=== PATIENT | female | born 1945 | race Caucasian/White ===

== ENCOUNTER 2020-05-31 07:30 | Observation (INO) ==
--- NOTE | 2020-05-31 08:26 | History & Physical Bridge Note ---
Date of Service May 31, 2020 History & Physical Bridge Note I have examined the patient, reviewed the History & Physical and in the interval since the performance of the History & Physical I have noted the following changes of clinical significance: no changes noted
[2020-05-31] MEDS ORDERED: LIDOCAINE HCL 1% 20 ML VIAL ONE (08:33)
[2020-05-31] MEDS ORDERED: BACITRACIN INJ 50,000 UNIT VIAL ONE (08:33)
[2020-05-31] MEDS ORDERED: BUPIVACAINE 0.25% 30 ML VIAL ONE (08:33)
--- NOTE | 2020-05-31 08:47 | Operative Report ---
Post Operative Report Pre & Post Diagnosis Syncope Operation Date: 05/31/20 09:00 <No data on this case meets the specified criteria> I identified the patient and participated in the time-out.: Yes Procedure Operation Date: 05/31/20 09:00 <No data on this case meets the specified criteria> LINQ insertion Surgeon Sujata Pacheco, DO Relish Maker none Estimated Blood Loss 1 Findings Consistent with Post-Op Diagnosis Specimens none Description of Procedure see official report I attest to the content of the Intraoperative Record and any orders documented therein. Any exceptions are noted below.
--- NOTE | 2020-05-31 08:51 | Pre Anesthesia Assessment ---
Date of Service May 31, 2020 Pre Sedation Assessment Cardiovascular + bradycardic Respiratory normal respiratory effort, lungs clear to auscultation Pre-Sedation Airway Assessment Smoking Status: Former smoker Hx Sleep Apnea: No Hx Difficult Intubation: No Short, Thick Neck: No Thyromental Distance: < 3.5 Finger Breadths Oral Cavity: + Dental Abnormalities Mallampati Class: II ASA: ASA3 Procedure Planning Contraindications for Sedation: none Current Medications Reviewed: Yes Notes The planned sedation has been discussed with the patient. Informed Consent was obtained. I have identified the patient, determined the appropriateness of sedation and have assessed the patient immediately prior to the procedure. All medicine(s) and interventions are by my order.
[2020-05-31] MEDS ORDERED: MIDAZOLAM HCL 5 MG/ML 1 ML VIAL ONE (09:10)
[2020-05-31] MEDS ORDERED: fentaNYL citrate 100 MCG/2 ML VIAL ONE (09:10)
[2020-05-31] MEDS ORDERED: CEFAZOLIN 250 MG/ML 1 GM VIAL ONE (09:10)
[2020-05-31] MEDS ORDERED: ACETAMINOPHEN 325 MG TAB PO PRN (10:47)
--- NOTE | 2020-05-31 10:47 | Operative Report ---
Post Operative Report Pre & Post Diagnosis chb Operation Date: 05/31/20 09:00 <No data on this case meets the specified criteria> I identified the patient and participated in the time-out.: Yes Procedure Operation Date: 05/31/20 09:00 left bundle ppm intracardiac mapping of EGM for HIS bundle <No data on this case meets the specified criteria> Surgeon Sujata Pacheco, DO Radiological Engineer none Estimated Blood Loss 1 Findings Consistent with Post-Op Diagnosis Specimens None Description of Procedure see official report I attest to the content of the Intraoperative Record and any orders documented therein. Any exceptions are noted below.
--- NOTE | 2020-05-31 10:47 | Post Anesthesia Assessment ---
Date of Service May 31, 2020 Post Sedation Assessment Vital Signs Temp Pulse Resp BP Pulse Ox 05/31/20 08:30 36.9 C 33 L 16 141/59 H 100 Recovery Score Activity: Moves 4 extremities Respiration: Deep Breath/Cough Circulation: +/-20% PreAnes Value Consciousness: Fully Awake Oxygen Saturation: > 92% On Room Air Discharge Sedation Level of Care: Fast Track Phase II Post Sedation Plan On clinical assessment, the patient appears to have tolerated the sedation without complications. Patient is recovering as anticipated. Patient will continue to be monitored by nursing and may be discharged when sedation discharge criteria are met per below protocol. Upon Completions of procedure up to 15 minutes continue every 5 minute vital signs and the P.A.R. score; then discharge to a Phase I or Fast Track to Phase I I per the following guidelines: * Discharge Patient to appropriate Phase II area if PAR is 8 or greater or return to pre- procedure baseline. The post - procedure orders will be as directed. * If PAR score is less than 8 or not return to pre-procedure baseline then patient will follow Phase I monitoring till PAR is reached for Phase II. The Phase I may be done in procedure room or may call to secure a Phase I area. * If naloxone or flumazenil are used for reversal, hold in Phase I for continued monitoring from when last reversal dose was given for a minimum of 60 minutes or longer pending the nurse and/or physician discretion of patient condition before discharge to Phase II. Please call the Sedation Physician to re-evaluate and complete post-note for discharge to Phase II area. Do NOT discharge from procedure sedation or Phase 1 until post- sedation evaluation note is complete by procedure /sedation MD Sedation Discharge Instructions to be given to the patient at discharge to home.
[2020-05-31] MEDS ORDERED: ALPRAZolam 0.5 MG TABLET PO PRN (10:52)
--- NOTE | 2020-05-31 10:55 | Discharge Summary ---
Date of Service June 01, 2020 Admission HPI Per Admitting Provider +fatigue and SOB due to CHB Admission Exam Per Admitting Provider aaox3, NAD NC/AT, EOMI Supple No JVD bradycardia S1/S2, No murmur CTA b/l no w/r/r soft nt/nd no LE edema b/l skin intact no focal deficits Principal Diagnosis chb s/p dual chamber ppm Discharge Exam aaox3, NAD NC/AT, EOMI Supple No JVD Nrl S1/S2, No murmur CTA b/l no w/r/r soft nt/nd no LE edema b/l skin intact no focal deficits left pectoral incision intact, no hematoma mild ecchymosis Discharge Data Allergies Allergy/AdvReac Type Severity Reaction Status Date / Time adhesive tape Allergy Mild Blister Verified 05/31/20 09:00 niacin Allergy Mild Rash Verified 05/31/20 09:01 Chrome Allergy Unknown Unknown Uncoded 05/31/20 09:00 nickel Allergy Unknown Unknown Uncoded 05/31/20 08:59 Procedures Performed Operation Date: 05/31/20 09:00 Actual Procedures p Pacer with A/V Leads (Dual) - Sujata Pacheco DO Ordered Studies CXR: No PTX leads in position 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 Underwent procedure without any complications; monitored overnight and discharged home. Total Time Total Time Spent Total Time Spent (In Minutes): 35 Total Time Includes: Examination of the Patient, Discharge Planning, Medication Reconciliation and Other Discharge Plan Discharge Items Patient Disposition: Home - Self-Care Reason For Visit: Symptomatic Sinus Bradycardia Discharge Diagnosis: chb s/p dual chamber ppm Condition on Discharge: Good Activity: As commented below Activity Comment: do not lift your left elbow over your left shoulder for 1 month Lifting: No more than 10 pounds Lifting Comment: do not lift more than 10 pounds with the left arm for 2 weeks Bathing: Keep incision dry Bathing Comment: keep dressing on and dry until wound check next week Sexual Activity: After two weeks Non-emergency contact: Technical Solution Architect Call non-emergency contact if: you have any medication questions Follow-up/Referrals: Humble Rizvi MD [Primary Care Provider] - Diet: Heart Healthy Addtl Attending Provider Instructions: device and wound check next week in [place] [facility] office try to wear the surgical bra or sports bra daily for the next 2 weeks to help the healing process Pending Studies at Discharge: No Stand-Alone Forms: My [facility] Medications and DC Order Prescriptions: Continued atorvastatin [Lipitor] 40 mg Tablet 40 mg PO DAILY RF: 0 folic acid 400 mcg Tablet 0.4 mg PO DAILY RF: 0 alprazolam [Xanax] 0.5 mg Tablet 0.5 mg PO TID PRN (Reason: Anxiety) RF: 0 cinnamon bark [Cinnamon] 500 mg Capsule 1,000 mg PO DAILY RF: 0 magnesium 500 mg Tablet 500 mg PO DAILY RF: 0 ascorbic acid (vitamin C) [Vitamin C] 500 mg Capsule, Extended Release 500 mg PO DAILY RF: 0 cranberry 500 mg Capsule 500 mg PO DAILY RF: 0 coenzyme Q10 [CoQ-10] 100 mg Capsule 200 mg PO DAILY RF: 0 alpha lipoic acid 200 mg Capsule 200 mg PO DAILY RF: 0 Discharge Orders: Discharge Order (Routine); Ordered 06/01/20 Ordered By: Sujata Pacheco Admission Data Admit Date/Time: 05/31/20 09:43 Attending Provider: Sujata Pacheco Admit Provider: Sujata Pacheco Primary Care Provider: Humble Rizvi I.
[2020-05-31] MEDS: OXYCODONE/ACETAMINOPHEN 5mg/325mg TAB PO PRN ×3 (14:42→23:05)
--- NOTE | 2020-05-31 17:31 | Electrocardiogram Report ---
Test Reason : Blood Pressure : / mmHG Vent. Rate : 062 BPM Atrial Rate : 062 BPM P-R Int : 166 ms QRS Dur : 144 ms QT Int : 506 ms P-R-T Axes : 070 -32 099 degrees QTc Int : 513 ms A-sensed V-paced rhythm Abnormal ECG No previous ECGs available Confirmed by Jeovanny Sargent ([id number]) on 05/31/2020 5:31:24 PM Referred By: Sujata Pacheco Confirmed By:Adalberto Sargent
--- NOTE | 2020-06-01 06:42 | XRay Report ---
XR chest 2V PA/lateral HISTORY: 74 years-old Female post left bundle ppm cardiac arrhythmia COMPARISON: None TECHNIQUE: PA and lateral views of the chest FINDINGS: Cardiac silhouette is upper limits of normal in size. Calcified plaque of the thoracic aortic arch. D ual lead left subclavian pacer. No pneumothorax, pleural effusion, airspace consolidation or overt pu lmonary edema. Bones appear grossly intact. Cholecystectomy. IMPRESSION: Left subclavian pacer. No postprocedural pneumothorax. ACT 112: Negative or not required by law. The above report was generated using voice recognition software. It may contain grammatical, syntax o r spelling errors. Electronically signed by: Jean Pierre Doyle M.D. 06/01/2020 6:41 AM
[2020-06-01] MEDS ORDERED: ASCORBIC ACID 500 MG TAB PO SCH (09:00)
[2020-06-01] MEDS ORDERED: NON-FORMULARY MEDICATION (Cranberry 500 MG) PO SCH (09:00)
[2020-06-01] MEDS ORDERED: ATORVASTATIN 40 MG TAB PO SCH (09:00)
[2020-06-01] MEDS ORDERED: MAGNESIUM OXIDE 400 MG TAB PO SCH (09:00)
[2020-06-01] MEDS ORDERED: NON-FORMULARY MEDICATION (Coenzyme Q10 [Coq-10] 200 MG) PO SCH (09:00)
[2020-06-01] MEDS ORDERED: FOLIC ACID 400 MCG TAB PO SCH (09:00)
[2020-06-01] MEDS ORDERED: NON-FORMULARY MEDICATION (Alpha Lipoic Acid 200 MG) PO SCH (09:00)
[2020-06-01] MEDS ORDERED: NON-FORMULARY MEDICATION (Cinnamon Bark [Cinnamon] 1,000 MG) PO SCH (09:00)
[2020-06-01] MEDS ORDERED: ONDANSETRON INJ 2 MG/ML 2 ML VIAL IV ONE (09:13)
[2020-06-01] MEDS ORDERED: ONDANSETRON 4 MG OD TAB PO STA (09:58)
--- NOTE | 2020-06-01 11:48 | Electrocardiogram Report ---
Test Reason : Blood Pressure : / mmHG Vent. Rate : 066 BPM Atrial Rate : 066 BPM P-R Int : 168 ms QRS Dur : 140 ms QT Int : 484 ms P-R-T Axes : 067 133 094 degrees QTc Int : 507 ms Atrial-sensed ventricular-paced rhythm with occasional atrial pacing Abnormal ECG Confirmed by Jeovanny Sargent ([id number]) on 06/01/2020 11:48:38 AM Referred By: Sujata Pacheco Confirmed By:Adalberto Sargent
--- NOTE | 2020-06-02 05:10 | Operative Report (OR) ---
DATE OF OPERATION: 05/31/2020 PREOPERATIVE DIAGNOSIS: Complete heart block. POSTOPERATIVE DIAGNOSIS: Complete heart block. PROCEDURE: Dual chamber (left bundle) rate responsive permanent pacemaker along with peripheral venogram and intracardiac electrogram mapping of the His bundle region, all under fluoroscopic guidance. SURGEON: Sujata Pacheco DO. ASSISTANTS: None. ANESTHESIA: Monitored conscious sedation administered under my supervision by Elizabet Kohler. Start time 9:25, end time 10:42, total of 4 mg Versed, 100 mcg of fentanyl. INTRAVENOUS FLUIDS: 42 mL. ANTIBIOTICS: Two grams of Ancef. BLOOD LOSS: 20 mL. CONTRAST 25 mL. URINE OUTPUT: Not applicable. SPECIMENS: None. FINDINGS: See below. DRAINS: None. INDICATIONS: This is a 74-year-old female who has a past medical history of hyperlipidemia, obstructive sleep apnea, and prediabetes. She was having some dizziness, noted some bradycardia, came into our office and was found to be in complete heart block, so she was recommended a pacemaker. CONSENT: Consent was obtained prior to the patient going into electrophysiology lab. The patient was informed of the risks, benefits and alternatives to the procedure. Risks include but not limited to sudden cardiac , cardiac arrhythmia, cerebrovascular accident, myocardial infarction, injury to the blood vessels, chamber of the heart, lung, bleeding, and infection. The patient understood these risks and agreed with procedure as planned. Informed consent was obtained. DESCRIPTION OF THE PROCEDURE: The patient was brought into the electrophysiology lab in fasting state. She was connected to continuous director of cardiac cath lab. Timeout was performed to ensure patient's identity and procedure correctly. She received prophylactic antibiotics prior to incision. Copen precautions obtained throughout the procedure. Monitored conscious sedation was given throughout the procedure for patient's comfort level. 10 mL of 1% lidocaine, bupivacaine mixture were given in the left deltopectoral groove. Incision was made in left deltopectoral groove. Blunt dissection was performed down to the subcutaneous tissue. Then a peripheral venogram was performed to identify the axillary vein. Venous axillary access was obtained through a needlestick without any problems. Guidewire was inserted and then an 8-[place] SafeSheath was advanced over the guidewire. The dilator was removed and a second guidewire was inserted through the sheath to allow for retained venous access. Sheath was removed, flushed, reinserted reinserted with the dilator and then reinserted over the guidewire. The guidewire and dilator were removed. Then initially I put the right atrial lead down into the right ventricular apex to have backup pacing in case I needed it. Then I placed an 8-[place] SafeSheath over the retained guidewire. The guidewire and dilator removed and then the His sheath was advanced over a Glidewire into the right ventricle. The Glidewire and dilator were removed. Then, the pacing lead was advanced through the sheath and I did intracardiac electrogram mapping of the His bundle, I found the AH 80 milliseconds, HV was 60 milliseconds. I then marked where this area was on my monitor when my camera was in MAK 30. Then I saul an imaginary line down to the apex and about 10 cm from the His bundle region. I marked another area on my monitor screen to have an idea of where I wanted my left bundle lead to go, I then positioned the left bundle lead into this general area and onto the septum and I started clockwise turning the lead a few times to start screwing it into the septum and watching monitored QRS morphology changing my V1 as well as my pacing stim to the QRS peak in V6 as well as my impedance drops. At one point, I did get a high impedance drop. I then gave a puff of contrast through the sheath and I noticed that although I still had injury on my lead and I still had capture and good and stable impedance, when I gave contrast through the sheath, it looks like there was a microperforation because some of the contrast into the LV. I therefore retracted back the lead, pulled the lead out and flushed it and then started all over again repositioning the pacing lead in that septum area a little below the His and little different from where it was before and then gave a series of clockwise turns to start screwing the lead in and monitoring my QRS morphology changes in V1 as well as my pacing stim to QRS timing in V5, and V6, and my impedance drops. The lead could easily went into the septum. Only gave a few turns and then I gave a puff of contrast to see that I had majority of the lead in and it was up against the septum. I then slit the His sheath under fluoroscopic guidance. I then went back to the backup right atrial lead that I had been placed in the right ventricle apex. I retracted the screw and then positioned this lead into the right atrial apex. There was adequate pacing and sensing thresholds and no diaphragmatic stimulation with high output pacing. The sheath was then slit under fluoroscopic guidance and the lead was fixated to pectoralis muscle using 0 silk suture. I then slit the outer 8-[place] sheath that was around the left bundle lead and then fixated that lead to the pectoralis muscle, a pursestring using 2-[address] needle was placed around the venous puncture site. I then created a pacer pocket using blunt dissection over the pectoralis muscle, then flushed the pocket with copious amounts of bacitracin saline wash. The leads were then attached to the pulse generator making sure the pins were in appropriate position, passed set screw and set screws were tightened. The pulse generator was then placed in a Tyrx pouch and then placed in the pocket, making sure that the leads were lying flat beneath the device. The incision was then closed in 3-layer fashion with 2-0 Vicryl interrupted suture followed by 3-0 Vicryl interrupted suture, followed by 4-0 Monocryl running stitch. Dermabond was applied followed by a Telfa and micropore dressing. EQUIPMENT: 1. The pulse generator is a Medtronic [place] XT DR AKIKO Darby [id number], serial #[id number]. 1. The Tyrx pouch is reference [id number], lot #[id number], expiration 03/09/2021. 2. Right atrial lead Medtronic 5076-52 cm, serial #[id number]. 3. Left bundle lead Medtronic 3830-69 cm, serial number [id number]. INTRAOPERATIVE FINDIN. Right atrial lead: P waves 2.6 millivolts, impedance 592 ohms, threshold 0.7 volts at 0.5 milliseconds. 2. Left bundle lead: R waves 9.1 millivolts, impedance 757 ohms, threshold 0.3 volts at 0.5 milliseconds. 3. AH was 80 milliseconds, HV was 60 milliseconds. FINAL MEASUREMENTS THROUGH THE DEVICE: 1. Right atrial lead: P waves 1.8 millivolts, impedance 494 ohms, threshold 0.25 volts at 0.5 milliseconds. 2. Left bundle lead: R waves 10.6 millivolts, impedance 703 ohms, threshold 0.5 volts at 0.4 milliseconds. FINAL PARAMETERS: DDDR 60/130, right atrial amplitude 3.5 volts, pulse width 0.4 milliseconds, sensitivity 0.3 millivolts. Left bundle lead amplitude 3.5 volts, pulse width 0.4 milliseconds, sensitivity 1.2 millivolts. IMPRESSION: Successful implantation of a dual chamber (left bundle) rate responsive permanent pacemaker under fluoroscopic guidance along with peripheral venogram and intracardiac electrogram mapping of the His bundle region secondary to complete heart block. PLAN: Monitor the patient overnight, 12-lead ECG, chest x-ray. She cannot lift the left elbow and left shoulder for 1 month. She cannot lift more than 10 pounds with the left arm for 2 weeks. She is to shower. She is to keep the dressing on and dry until her wound check next week and she will follow up with general cardiology as scheduled. I attest to the content of the Intraoperative Record and any orders documented therein. Any exceptions are noted below. JEAN PAUL
== END 2020-06-01 11:00 | disposition home or self-care (01) ==
LOC: EP 07:30 → 1E 07:30 → 2S 18:55

== ENCOUNTER 2024-10-02 05:45 | Inpatient (IN) ==
--- NOTE | 2024-09-04 08:24 | PAT Medication Instructions ---
Medication Instructions Date of Service September 04, 2024 Home Medications alpha lipoic acid 200 mg capsule 200 mg PO QAM alprazolam 0.5 mg tablet (Xanax) 0.25 mg PO HS PRN Sleep ascorbic acid (vitamin C) 500 mg capsule,extended release (Vitamin C) 500 mg PO QAM coenzyme Q10 100 mg capsule (CoQ-10) 100 mg PO QAM cranberry 500 mg capsule 500 mg PO QAM folic acid 400 mcg tablet 0.8 mg PO QAM Prevagen 1 dose PO QAM ascorbic acid 7.5 mg-vit E 7.5 unit-biotin 1,250 mcg chewable tablet (Hair,Skin,Nails with Biotin) 1 tab PO QAM cholecalciferol (vitamin D3) 50 mcg (2,000 unit) capsule (Vitamin D3) 100 mcg PO QAM flaxseed oil 1,000 mg capsule 1,000 mg PO QAM herbal complex no.[id number] 450 mg capsule (Echinacea and Goldenseal) 900 mg PO QAM magnesium glycinate 118 mg PO QPM red yeast rice 600 mg tablet 1,200 mg PO QAM selenium 200 mcg tablet 200 mcg PO QAM turmeric 400 mg capsule 400 mg PO UD vitamin E (dl, acetate) 400 unit chewable tablet 400 unit PO QAM zinc 50 mg tablet 50 mg PO QAM STOP taking 2 weeks before surgery (or as soon as possible if surgery is within 2 weeks) alpha lipoic acid 200 mg capsule 200 mg PO QAM coenzyme Q10 100 mg capsule (CoQ-10) 100 mg PO QAM Prevagen 1 dose PO QAM ascorbic acid 7.5 mg-vit E 7.5 unit-biotin 1,250 mcg chewable tablet (Hair,Skin,Nails with Biotin) 1 tab PO QAM flaxseed oil 1,000 mg capsule 1,000 mg PO QAM herbal complex no.174 450 mg capsule (Echinacea and Goldenseal) 900 mg PO QAM red yeast rice 600 mg tablet 1,200 mg PO QAM selenium 200 mcg tablet 200 mcg PO QAM turmeric 400 mg capsule 400 mg PO UD vitamin E (dl, acetate) 400 unit chewable tablet 400 unit PO QAM DO NOT take the morning of surgery ascorbic acid (vitamin C) 500 mg capsule,extended release (Vitamin C) 500 mg PO QAM folic acid 400 mcg tablet 0.8 mg PO QAM cholecalciferol (vitamin D3) 50 mcg (2,000 unit) capsule (Vitamin D3) 100 mcg PO QAM zinc 50 mg tablet 50 mg PO QAM cranberry 500 mg capsule 500 mg PO QAM Take evening before surgery alprazolam 0.5 mg tablet (Xanax) 0.25 mg PO HS PRN Sleep (if needed) magnesium glycinate 118 mg PO QPM MORNING OF SURGERY: NOTHING TO EAT OR DRINK AFTER MIDNIGHT Other Notes If you have any questions please call us at [phone] or [phone] or [phone] or [phone]
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
--- OUTSIDE RECORDS SUMMARY | 2024-10-02 05:51 | External Medical Summary | Summary of Care ---
Author Name Unknown Organization [facility] Address [address] [facility] [address] Phone [phone] Care Team Providers Care Photovoltaic Subcontractor Name Role Phone Nataly Jama PA-C Primary Care Provider Encounter Details Date Type Department Care Team (Late st Contact Info) Description 10/01/2024 Result Scan Unspecified Department Sujata Pacheco, DO [address] [facility] [place] [id number] <No scans attached> Allergies Active Allergy Reactions Criticality Noted Date Comments Adhesive Tape Rash High 04/24/2017 Chrome Alum Rash 10/30/2018 Latex Rash 07/08/2020 Niacin Rash High 03/03/2024 Nickel 08/28/2017 And chrome, can't wear jewelery or makeup with these in them. Oxycodone 10/07/2023 vomiting documented as of this encounter (statuses as of 10/02/2024) Medications Vitamin C 500 MG Oral Tablet Take 1 Tablet by mouth in the morning. Active CoQ-10 100 MG Oral Capsule Take 200 mg by mouth daily. Active Cranberry 500 MG Oral Capsule Take 1 Capsule by mouth in the morning. One capsule by mouth daily. Active Alpha-Lipoic Acid 200 MG Oral Capsule Take 1 Cap by mouth daily. Active Folic Acid 400 MCG Oral Tablet Take 1 Tablet by mouth in the morning. Active Aspirin 81 MG Oral Tablet Chewable Take 1 Tablet by mouth in the morning. Active Vitamin E 100 UNIT Oral Capsule Take 1 Capsule by mouth in the morning. Active D3-1000 25 MCG (1000 UT) Oral Tablet (Cholecalcifero l) Take 2 Tablets by mouth in the morning. Active Selenium 100 MCG Oral Capsule Take 1 Capsule by mouth in the morning. Active ALPRAZolam 0.5 MG Oral Tablet (xaNAX)Indicati ons:ALAN (generalized anxiety disorder) One tablet by mouth as often as three times a day, as needed for anxiety. 30 Tablet 1 3 Active Red Yeast Rice 600 MG Oral Capsule Take 2 Capsules by mouth in the morning. Active [facility] Flaxseed Oil 1000 MG Oral Capsule Take 1 Capsule by mouth every morning. Active Ibuprofen 800 MG Oral Tablet (Motrin) Take 1 Tablet by mouth in the morning and 1 Tablet at noon and 1 Tablet before bedtime. with food for pain. 30 Tablet 1 4 Active Estradiol 0.1 MG/GM Vaginal Cream (Estrace) Apply pea sized (0.5 gm) vaginally twice a week at bedtime. 42.5 g 3 4 Active Zinc 100 MG Oral Tablet Take 1 Tablet by mouth in the morning. Active Magnesium 400 MG Oral Tablet Take 1 Tablet by mouth every evening. OTC Active documented as of this encounter (statuses as of 10/02/2024) Active Problems Problem Noted Date Diagnosed Date Mixed dyslipidemia 03/07/2021 CHB (complete heart block) 05/31/2020 ALAN (generalized anxiety disorder) 11/16/2019 Chronic constipation 11/07/2018 Prediabetes 06/02/2018 Overview: Per Prediabetes protocol #1 SANDY (obstructive sleep apnea) 03/05/2018 Overview (12/18/2019): On CPAP INFORMATION 09/25/2017 Overview (09/25/2017): Received records from [facility]. Chest x-ray in January of 2017 was unremarkable. Past surgical history includes appendectomy, cholecystectomy, hysterectomy and bladder prolapse surgery. CBC, lipid, metabolic panel are unremarkable documented as of this encounter (statuses as of 10/02/2024) Resolved Problems Problem Noted Date Diagnosed Date Resolved Date Current mild episode of omari r depressive disorder without prior episode 09/06/2020 1 Encounter for examination fo r normal comparison and control in clinical research program 06/04/2018 03/28/2020 Overview (12/12/2020): DO NOT DELETE [facility] XOCHITL Study: Project # [id number], Manager Applied: Ty Guzman, PhD. SUMMARY: Goal: Establish test characteristics (sensitivity, specificity, PPV, NPV) of a circulating tumor DNA (ctDNA)-based test for cancer. Hypothesis: Circulating tumor DNA (ctDNA) and elevated protein biomarkers (together, the marker panel) can be detected in asymptomatic individuals with early cancer. Specific Aim 1: Determine the prevalence of a positive marker panel test in a prospective clinical cohort of 10,000 asymptomatic women ages 65 to 75 years. Specific Aim 2: Determine the sensitivity, specificity, positive predictive value (PPV) and negative predictive value (NPV) of a marker panel test to identify histologically proven cancers that develop within 5-years of the marker panel evaluation. CONTACTS: During normal business hours, contact study staff at ; after hours Manager Applied via the [facility] hospital operator weapon locating radar . Please contact study team before resolving/deleting from patients problem list. Study phone number: [phone]. Diagnosis changed due to Research Module. Go to Snapshot for study details. Encounter for examination fo r normal comparison and control in clinical research program 06/04/2018 04/26/2022 Overview (12/12/2020): DO NOT DELETE - [facility] DETECT Study: Project # [id number], Manager Applied: Reno Fonseca, MS, MPH. SUMMARY: Goal: Establish test characteristics (sensitivity, specificity, PPV, NPV) of a circulating tumor DNA (ctDNA)-based test for cancer. - Hypothesis: Circulating tumor DNA (ctDNA) and elevated protein biomarkers (together, the marker panel) can be detected in asymptomatic individuals with early cancer. - Specific Aim 1: Determine the prevalence of a positive marker panel test in a prospective clinical cohort of 10,000 asymptomatic women ages 65 to 75 years. - Specific Aim 2: Determine the sensitivity, specificity, positive predictive value (PPV) and negative predictive value (NPV) of a marker panel test to identify histologically proven cancers that develop within 5-years of the marker panel evaluation. - CONTACTS: During normal business hours, contact study staff at ; after hours Manager Applied via the [facility] hospital operator weapon locating radar . - Please contact study team before resolving/deleting from patients problem list. Study phone number: [phone]. Diagnosis changed due to Research Module. Go to Snapshot for study details. documented as of this encounter (statuses as of 10/02/2024) Immunizations Name Administration Dates Next Due Pneumococcal Polysaccharide PPV23 (Pneumovax) Season Influenza, Quad, PF, Adjuvanted, 65+ Yrs, IM (FLUAD) 07/08/2020 Seasonal Influenza, Quadrivalent, No Preserve, I M 06/02/2018 TDAP (age 10 and older)(Boostrix) 01/24/2017 Varicella Zoster Vaccine (Adult) 12/25/2015,07/0 01/2015 documented as of this encounter Social History Tobacco Use Types Packs/Day Years Used Date Smoking Tobacco: Never Smokeless Tobacco: Never Alcohol Use Standard Drinks/Week Comments No 0 (1 standard drink = 0.6 oz pur e alcohol) occasionally PHQ-2 Answer Date Recorded PHQ Adult Total Score 0 12/19/2023 Hunger Vital Sign Answer Date Recorded Within the past 12 months, y ou worried that your food would run out before you got the money to buy more. Never true 10/07/19 24 Within the past 12 months, t he food you bought just didn't last and you didn't have money to get more. Never true 10/07/2023 Childcare Answer Date Recorded Do you feel overwhelmed with taking care of a child, family member or friend? No 10/07/2023 Does your family need help f inding childcare? (Household - for ages 0-17 years) Not on file 10/07/2023 Clothing Answer Date Recorded Have you been unable to get clothing when it was really needed? No 10/07/2023 Is your family able to get c lothes or diapers when needed? (Household - for ages 0-17 years) Not on file 10/07/2023 Personal Safety Answer Date Recorded Do you feel unsafe or have concerns for your saf ety? No 10/07/2023 Do you have concerns for you r family's safety? (Household - for ages 0-17 years) Not on file 10/07/2023 Utilities Answer Date Recorded Do you have trouble paying y our heating, water, or electric bill? No 10/07/2023 Is your family able to pay t he heat, water, or electric bill? (Household - for ages 0-17 years) Not on file 10/07/2023 Does your family have access to good internet? (Household - for ages 0-17 years) Not on file 10/07/2023 Employment Status Answer Date Recorded Are you unemployed or without regular income? No 10/07/2023 Does the household have a re gular source of income? (Household - for ages 0-17 years) Not on file 10/07/2023 Social Connections Answer Date Recorded How often do you feel lonely or isolated from th ose around you? Never 10/07/2023 Financial Resource Strain Answer Date R ecorded Do you have any trouble payi ng for your medications, or do you think you might in the future? No 10/07/2023 Does your family have troubl e paying for medicine? (Household - for ages 0-17 years) Not on file 10/07/2023 Transportation Needs Answer Date Record ed READ ONLY Do you have troubl e getting a ride to medical visits or work? Never True 10/07/2023 Does your family have a hard time getting a ride to doctors visits? (Household - for ages 0-17 years) Not on file 10/07/2023 Has lack of transportation k ept you from medical appointments, meetings, work, or from getting things needed for daily living? Check all that apply. (Adult - for ages 18 years and over) Not on file 10/07/2023 Do you (or your family) have trouble finding or paying for a ride (transportation)? (Household - for ages 0-17 years) Not on file 10/07/2023 Housing Stability Answer Date Recorded Do you currently live in a s helter or have no steady place to sleep at night? No 10/07/2023 READ ONLY Do you think you a re at risk of becoming homeless? No 10/07/2023 Does your family worry about paying for your home or becoming homeless? (Household - for ages 0-17 years) Not on file 0 10/07/2023 Are you homeless or worried that you might be in the future? (Adult - for ages 18 years and over) Not on file Are you (or your family) shilo eless or worried that you might be in the future? (Household - for ages 0-17 years) Not on file Food Insecurity Answer Date Recorded Do you need food for this week? No 10/07/2023 Are you able to get enough f ood for your family? (Household - for ages 0-17 years) Not on file 10/07/2023 Does your family need food t his week? (Household - for ages 0-17 years) Not on file 10/07/2023 Do you always have enough fo od for your family? (Household - for ages 0-17 years) Not on file 10/07/2023 Comments No Sex and Gender Information Value Date Recorded Sex Assigned at Not on file Legal Sex Female 4:18 PM EDT Gender Identity Not on file Sexual Orientation Not on file documented as of this encounter Plan of Treatment Upcoming Encounters Date Type Department Care Team (Late st Contact Info) Description 12/31/2024 10:00 AM EDT Nurse Only Ancillary, [place] [address] [place] [address] [place], Nurse Annual Wellness [facility] [address] [place] [address] 02/02/2025 1:30 PM EDT Office Visit [facility] O[facility]mane Ontiveros [address] [place] [address] Handy Bravo MD [address] [place] [address] 09/09/2025 10:00 AM EST Office Visit [facility] [address] [place] [address] Carmelina Gonzalez CRNP [address] [place] [address] Health Maintenance Due Date Last Done Comments Zoster Vaccines (2 of 3) 02/19/2016 12/25/2015, /01/2015 Pneumococcal Vaccine: 50+ Years (2 of 2 - PCV) 01/24/2018 01/24/2017 COVID-19 Vaccine (1 - season) 2024 Influenza Vaccine (FLU shot) (#1) 2024 07/08/2020, 06/02/2018 Adult Wellness Visit 12/18/2024 12/19/2023, 04/02/2022, 04/03/2021 Depression Screening 12/18/2024 12/19/2023 HbA1c 12/19/2024 12/20/2023, 02/0 04/2022, 10/03/2020, Additional history exists DXA Scan 08/18/2026 08/18/2024, 06/19/2018 DTap/Tdap Vaccines (2 - Td or Tdap) 01/24/2027 01/24/2017 HPV (Gardasil) Vaccine Aged Out No lo nger eligible based on patient's age to complete this topic Hepatitis B Vaccine Aged Out No longe r eligible based on patient's age to complete this topic MENINGOCOCCAL (MENACTRA/MENVEO) Aged Out No longer eligible based on patient's age to complete this topic documented as of this encounter Medical Devices Implanted Type Area Hop Worker Device Identifier Shelf Expiration Date Model / Serial / Lot Pacemaker-05/31/2020 Implanted:01/2020 (Quantity not on file) Pacemaker MED[employer] : CARDIAC SURGERY [id number] EMETERIO / / Description:[id number] Lens Intraoc 20.0 - [id number] - [id number] Implanted:Qty : 1 on 11/11/2018 by Russell Lima MD at [facility] Right: Eye [employer] 03/25/2023 [id number] / [id number] / [id number] Lens Intraoc 20.0 - [id number] - [id number] Implanted:Qty : 1 on 11/20/2018 by Russell Lima MD at [facility] Left: Eye [employer]OM[employer] 06/25/2023 [id number] / [id number] / [id number] documented as of this encounter Procedures Procedure Name Priority Date/Time Associated Diagnosis Comments CARDIOLOGY SCANNED RESULT 10/01/2024 documented in this encounter Results * CARDIOLOGY SCANNED RESULT (10/01/2024) 10/01/2024 us Sujata Pacheco DO OTHER Final R esult documented in this encounter Care Teams Photovoltaic Subcontractor Relationship Specialty Start Date End Date Nataly Jama PA-C [address] [place] [address] PCP - General Physician Black Top Spreader Machine Operator 03/04/24 documented as of this encounter
--- OUTSIDE RECORDS SUMMARY | 2024-10-02 05:51 | External Medical Summary | Summary of Care ---
Author Name Unknown Organization [facility] Address [address] [facility] [place] [address] Phone [phone] Care Team Providers Care Washery Boss Name Role Phone Nataly Jama PA-C Primary Care Provider Encounter Details Date Type Department Care Team (Late st Contact Info) Description 09/09/2024 Orders Only PATIENT PORTAL DO NOT DELETE THIS DEPT USED BY [place] [id number] Allergies Active Allergy Reactions Criticality Noted Date Comments Adhesive Tape Rash High 04/24/2017 Chrome Alum Rash 10/30/2018 Latex Rash 07/08/2020 Niacin Rash High 03/03/2024 Nickel 08/28/2017 And chrome, can't wear jewelery or makeup with these in them. Oxycodone 10/07/2023 vomiting documented as of this encounter (statuses as of 09/09/2024) Medications Vitamin C 500 MG Oral Tablet [...] Capsule by mouth in the morning. Active Warriormine-3 1000 MG Oral Capsule Take 1 Capsule [...] as of this encounter (statuses as of 09/09/2024) Active Problems Problem Noted Date Diagnosed Date Mixed dyslipidemia 03/07/2021 CHB (complete heart block) 05/31/2020 ALAN (generalized anxiety disorder) 11/16/2019 Chronic constipation 11/07/2018 Prediabetes 06/02/2018 Overview: Per Prediabetes protocol #1 SANDY (obstructive sleep apnea) 03/05/2018 Overview (12/18/2019): On CPAP INFORMATION 09/25/2017 Overview (09/25/2017): Received records from [facility]. Chest x-ray in January of 2017 was unremarkable. Past surgical history includes appendectomy, cholecystectomy, hysterectomy and bladder prolapse surgery. CBC, lipid, metabolic panel are unremarkable documented as of this encounter (statuses as of 09/09/2024) Resolved Problems Problem Noted Date Diagnosed Date Resolved Date Current mild episode of omari r depressive disorder without prior episode 09/06/2020 1 Encounter for examination fo r normal comparison and control in clinical research program 06/04/2018 03/28/2020 Overview (12/12/2020): DO NOT DELETE [facility] DETECT Study: Project # [id number], Band Tier: Ty Guzman, PhD. SUMMARY: Goal: Establish test [...] contact study staff at ; after hours Band Tier via the [facility] hospital screen printing machine operator helper . Please contact study team before resolving/deleting from patients problem list. Study phone number: [phone]. Diagnosis changed due to Research Module. Go to Snapshot for study details. Encounter for examination fo r normal comparison and control in clinical research program 06/04/2018 04/26/2022 Overview (12/12/2020): DO NOT DELETE - [facility] DETECT Study: Project # [id number], Band Tier: Reno Fonseca, MS, MPH. SUMMARY: Goal: Establish [...] contact study staff at ; after hours Band Tier via the [facility] hospital screen printing machine operator helper . - Please contact study team before resolving/deleting from patients problem list. Study phone number: [phone]. Diagnosis changed due to Research Module. Go to Snapshot for study details. documented as of this encounter (statuses as of 09/09/2024) Immunizations Name Administration Dates Next Due Pneumococcal [...] 18 years and over) Not on file 4 Are you (or your family) shilo eless [...] Care Team (Late st Contact Info) Description 09/22/2024 10:00 AM EST Office Visit Family Practice, [place] [address] [place] [phone] Je Bennett CRNP [address] [place] [id number] 12/31/2024 10:00 AM EDT Nurse Only Ancillary, [place] [address] [place] [address] [place], Nurse Annual Wellness [facility] [place] [address] 02/02/2025 1:30 PM EDT Office Visit COMMUNITY LEADER Urology Ousmane Ontiveros [facility] [place] [phone] Handy Bravo MD [address] [place] [address] 09/09/2025 10:00 AM EST Office Visit CardiologyOusmane [facility] [place] [address] Carmelina Gonzalez CRNP [address] [place] [phone] Health Maintenance Due Date Last Done Comments Zoster Vaccines (2 of 3) 02/19/2016 12/25/2015, 01/2015 Pneumococcal Vaccine: 50+ Years (2 of 2 - PCV) 01/24/2018 01/24/2017 COVID-19 Vaccine (1 - season) 2024 Influenza Vaccine (FLU shot) (#1) 2024 07/08/2020, 06/02/2018 Adult Wellness Visit 12/18/2024 12/19/2023, 04/02/2022, 04/03/2021 Depression Screening 12/18/2024 12/19/2023 HbA1c 12/19/2024 12/20/2023, 04/2022, 10/03/2020, Additional history exists DXA Scan [...] this encounter Medical Devices Implanted Type Area Neuro Ophthalmologist Device Identifier Shelf Expiration Date Model / Serial / Lot Pacemaker-05/31/2020 Implanted:01/2020 (Quantity not on file) Pacemaker MEDTRONIC : CARDIAC SURGERY [id number] EEMTERIO / / Description:[id number] Lens Intraoc 20.0 - [id number] - [id number] Implanted:Qty : 1 on 11/11/2018 by Russell Lima MD at OR [facility] Right: Eye BAUSCH & LOMB 03/25/2023 [id number] / [id number] / [id number] Lens Intraoc 20.0 - [id number] - [id number] Implanted:Qty : 1 on 11/20/2018 by Russell Lima MD at OR [facility] Left: Eye BAUSCH & LOMB 06/25/2023 [id number] / [id number] / [id number] documented as of this encounter Care Teams Washery Boss Relationship Specialty Start Date End Date Nataly Jama PA-C [address] [place] [phone] PCP - General Physician Research Assistant 03/04/24 documented as of this encounter
--- OUTSIDE RECORDS SUMMARY | 2024-10-02 05:52 | External Medical Summary | Summary of Care ---
Author Name Unknown Organization [facility] Address [address] [facility] [place] [address] Phone [phone] Care Team Providers Care Online Marketing Analyst Name Role Phone Nataly Jama PA-C Primary Care Provider Reason for Visit * Reason Comments Pre-op Clearance Encounter Details Date Type Department Care Team (Late st Contact Info) Description 09/07/2024 10:00 AM EST Office Visit CardiologyOusmane [address] [facility] [place], [place] [phone] Carmelina Gonzalez CRNP 400 [facility] [place] [phone] CHB (complete heart block) (HCC)*; Pre-operative cardiovascular examination; Cardiac pacemaker in situ; Mixed dyslipidemia Allergies Active Allergy Reactions Criticality Noted Date Comments Adhesive Tape Rash High 04/24/2017 Chrome Alum Rash 10/30/2018 Latex Rash 07/08/2020 Niacin Rash High 03/03/2024 Nickel 08/28/2017 And chrome, can't wear jewelery or makeup with these in them. Oxycodone 10/07/2023 vomiting documented as of this encounter (statuses as of 09/07/2024) Medications Vitamin C 500 MG Oral Tablet [...] Capsule by mouth in the morning. Active Dallas-3 1000 MG Oral Capsule Take 1 Capsule [...] Tablet by mouth every evening. OTC Active Lubiprostone 24 MCG Oral Capsule (Amitiza) TAKE 1 CAPSULE BY MOUTH TWICE DAILY WITH MORNING MEAL AND WITH EVENING MEAL WITH FOOD 60 Capsule 5 4 09/07/19 25 Discontinu ed(Patient preference /discontin uation) documented as of this encounter (statuses as of 09/07/2024) Active Problems Problem Noted Date Diagnosed Date Mixed dyslipidemia 03/07/2021 CHB (complete heart block) 05/31/2020 ALAN (generalized anxiety disorder) 11/16/2019 Chronic constipation 11/07/2018 Prediabetes 06/02/2018 Overview: Per Prediabetes protocol #1 SANDY (obstructive sleep apnea) 03/05/2018 Overview (12/18/2019): On CPAP INFORMATION 09/25/2017 Overview (09/25/2017): Received records from [facility]. Chest x-ray in January of 2017 was unremarkable. Past surgical history includes appendectomy, cholecystectomy, hysterectomy and bladder prolapse surgery. CBC, lipid, metabolic panel are unremarkable documented as of this encounter (statuses as of 09/07/2024) Resolved Problems Problem Noted Date Diagnosed Date Resolved Date Current mild episode of omari r depressive disorder without prior episode 09/06/2020 Encounter for examination fo r normal comparison and control in clinical research program 06/04/2018 03/28/2020 Overview (12/12/2020): DO NOT DELETE [facility] DETECT Study: Project # [id number], Cold Food Packer: Ty Guzman, PhD. SUMMARY: Goal: Establish test [...] contact study staff at ; after hours Cold Food Packer via the [facility] hospital whiteprinting machine operator . Please contact study team before resolving/deleting from patients problem list. Study phone number: [phone]. Diagnosis changed due to Research Module. Go to Snapshot for study details. Encounter for examination fo r normal comparison and control in clinical research program 06/04/2018 04/26/2022 Overview (12/12/2020): DO NOT DELETE - [facility] DETECT Study: Project # [id number], Cold Food Packer: Reno Fonseca, MS, MPH. SUMMARY: Goal: Establish [...] contact study staff at ; after hours Cold Food Packer via the [facility] hospital whiteprinting machine operator . - Please contact study team before resolving/deleting from patients problem list. Study phone number: [phone]. Diagnosis changed due to Research Module. Go to Snapshot for study details. documented as of this encounter (statuses as of 09/07/2024) Immunizations Name Administration Dates Next Due Pneumococcal Polysaccharide PPV23 (Pneumovax) Season Influenza, Quad, PF, Adjuvanted, 65+ Yrs, IM (FLUAD) 07/08/2020 Seasonal Influenza, Quadrivalent, No Preserve, I M 06/02/2018 TDAP (age 10 and older)(Boostrix) 01/24/2017 Varicella Zoster Vaccine (Adult) 12/25/2015,07/0 01/2015 documented as of this encounter Social History Tobacco Use Types Packs/Day Years Used Date Smoking Tobacco: Never Smokeless Tobacco: Never Tobacco Cessation:Counseling Given: Not Answered Alcohol Use Standard Drinks/Week Comments No 0 [...] 10/07/2023 Does the household have a re lar source of income? (Household - for ages [...] on file documented as of this encounter Last Filed Vital Signs Vital Sign Reading Time Taken Comments Blood Pressure 141/73 09/07/2024 9:55 AM EST Pulse 80 09/07/2024 9:55 AM EST Temperature - - Respiratory Rate - - Oxygen Saturation - - Inhaled Oxygen Concentration - - Weight 78.9 kg (174 lb) 09/07/2024 9:55 AM EST Height 162.6 cm (5' 4") 09/07/2024 9:55 AM EST Body Mass Index 29.87 09/07/2024 9:55 AM EST documented in this encounter Nursing Notes * Marychuy Canales, NRA - 09/07/2024 10:01 AM EST Patient was identified by name and date of . Name: Gaby Crum Date of : (1945). Examination Room: 2 Reason for Visit: Chief Complaint Patient presents with Pre-op Clearance Interim Hospitalization(s): NO Interim Emergency room visit(s): NO Chest Pain: No SOB: No Problems/Concerns: No Medications reviewed and are up to date via: Patient's memory Would you like to sign up for [facility]? ALREADY ACTIVE Patient was instructed to not get up on the exam table/exam chair until directed and assisted by their provider; patient is to remain seated in the chair/ wheelchair/ exam table/ exam chair for fall prevention and safety reasons. Patient is aware to have assistance to step down off exam table/exam chair with personnel. Patient voiced full comprehension of instructions. KIRAN Mckeon 10:02 AM 09/07/2024 documented in this encounter Plan of Treatment Upcoming Encounters Date Type Department Care Team (Late st Contact Info) Description 09/22/2024 10:00 AM EST Office Visit [facility] [address] [place] [phone] Je Bennett CRNP [address] [place] [phone] 12/31/2024 10:00 AM EDT Nurse Only [facility], [place] [address] [place] [address] [place], Nurse Annual Wellness [address] [place] [address] 02/02/2025 1:30 PM EDT Office Visit PEDIATRIC PHYSICAL THERAPIST Urology Ousmane Ontiveros [address] [place] [address] Handy Bravo MD [address] [place] [address] 09/09/2025 10:00 AM EST Office Visit CardiologyOusmane [address] [place] [address] Carmelina Gonzalez CRNP [address] [place] [address] Scheduled Orders Name Type Priority Associated Diagnoses Orde r Schedule LIPID PANEL WITH DIRECT LDL IF TG IS HIGH Lab Routine Mixed dyslipidemia Expected: 09/08/2024, Expires: 09/07/2025 Health Maintenance Due Date Last Done Comments Zoster Vaccines (2 of 3) 02/19/2016 12/25/2015, 01/2015 Pneumococcal Vaccine: 50+ Years (2 of 2 - PCV) 01/24/2018 01/24/2017 COVID-19 Vaccine ( - season) 2024 Influenza Vaccine (FLU shot) [...] this encounter Medical Devices Implanted Type Area Bander Device Identifier Shelf Expiration Date Model / Serial / Lot Pacemaker-05/31/2020 Implanted:01/2020 (Quantity not on file) Pacemaker MEDTRONIC : CARDIAC SURGERY [id number] EMETERIO / / Description:W1DR01 [id number] Lens Intraoc 20.0 - [id number] - [id number] Implanted:Qty : 1 on 11/11/2018 by Russell Lima MD at OR [facility] Right: Eye BAUSCH & LOMB 03/25/2023 [id number] / [id number] / [id number] Lens Intraoc 20.0 - [id number] - [id number] Implanted:Qty : 1 on 11/20/2018 by Russell Lima MD at OR [facility] Left: Eye BAUSCH & LOMB 06/25/2023 [id number] / [id number] / [id number] documented as of this encounter Visit Diagnoses Diagnosis CHB (complete heart block) (HCC)- Primary Atrioventricular block, complete Pre-operative cardiovascular examination Cardiac pacemaker in situ Mixed dyslipidemia Mixed hyperlipidemia documented in this encounter Care Teams Online Marketing Analyst Relationship Specialty Start Date End Date Nataly Jama PA-C [address] [place] [address] PCP - General Physician Policy Services Representative 03/04/24 documented as of this encounter
--- OUTSIDE RECORDS SUMMARY | 2024-10-02 05:52 | External Medical Summary | Summary of Care ---
Author Name Unknown Organization [facility] Address [address] [place] [facility] [facility] [place] [address] Phone [phone] Care Team Providers Care Heat Treat Technician Name Role Phone Nataly Jama PA-C Primary Care Provider Reason for Visit * Reason Comments Pre-op Clearance Encounter Details Date Type Department Care Team (Late st Contact Info) Description 09/07/2024 10:00 AM EST Office Visit CardiologyOusmane 400 [facility] [place], [place] [phone] Carmelina Gonzalez CRNP 400 [facility] [place] [phone] CHB (complete heart block) (HCC)*; Pre-operative cardiovascular [...] Capsule by mouth in the morning. Active Lincoln-3 1000 MG Oral Capsule Take 1 Capsule [...] INFORMATION 09/25/2017 Overview (09/25/2017): Received records from [facility]. Chest x-ray in January of 2017 [...] Overview (12/12/2020): DO NOT DELETE [facility] [place] DETECT Study: Project # [id number], Oxygen Furnace Operator: Ty Guzman, PhD. SUMMARY: Goal: Establish test [...] contact study staff at ; after hours Oxygen Furnace Operator via the [facility] hospital caustic operator . Please contact study team before resolving/deleting from patients problem list. Study phone number: [phone]. Diagnosis changed due to Research Module. Go to Snapshot for study details. Encounter for examination fo r normal comparison and control in clinical research program 06/04/2018 04/26/2022 Overview (12/12/2020): DO NOT DELETE - [employer] DETECT Study: Project # [id number], Oxygen Furnace Operator: Reno Fonseca, MS, MPH. SUMMARY: Goal: Establish [...] contact study staff at ; after hours Oxygen Furnace Operator via the [facility] hospital caustic operator . - Please contact study team before resolving/deleting from patients problem list. Study phone number: [phone]. Diagnosis changed due to Research Module. Go [...] Description 09/22/2024 10:00 AM EST Office Visit [facility] [address] [place] [phone] Je Bennett CRNP [address] [place] [phone] 12/31/2024 10:00 AM EDT Nurse Only [facility], [place] [address] [place] [address] [place], Nurse Annual Wellness [address] [place] [address] 02/02/2025 1:30 PM EDT Office Visit CAR USHER Urology Ousmane Ontiveros [address] [place] [address] Handy Bravo MD [address] [place] [address] 09/09/2025 10:00 AM EST Office Visit CardiologyO[facility]mane [address] [place] [address] Carmelina Gonzalez CRNP [address] [place] [address] Scheduled Orders Name Type Priority Associated Diagnoses [...] this encounter Medical Devices Implanted Type Area Grease Rack Worker Device Identifier Shelf Expiration Date Model / Serial / Lot Pacemaker-05/31/2020 Implanted:01/2020 (Quantity not on file) Pacemaker MEDTR[employer] : CARDIAC SURGERY W1DR01 EMETERIO / / Description:W1DR01 [id number] Lens Intraoc 20.0 - [id number] - [id number] Implanted:Qty : 1 on 11/11/2018 by Russell Lima MD at OR [facility] Right: Eye BAUSCH & LOMB 03/25/2023 [id number] / [id number] / [id number] Lens Intraoc 20.0 - [id number] - [id number] Implanted:Qty : 1 on 11/20/2018 by Russell Lima MD at OR [facility] Left: Eye BAUSCH & LOMB 06/25/2023 [id number] / [id number] / [id number] documented as of this encounter Visit Diagnoses Diagnosis CHB (complete heart block) (HCC)- Primary Atrioventricular block, complete Pre-operative cardiovascular examination Cardiac pacemaker in situ Mixed dyslipidemia Mixed hyperlipidemia documented in this encounter Care Teams Heat Treat Technician Relationship Specialty Start Date End Date Nataly Jama PA-C [address] [place] [address] PCP - General Physician Dietetic Tech 03/04/24 documented as of this encounter
--- OUTSIDE RECORDS SUMMARY | 2024-10-02 05:52 | External Medical Summary | Summary of Care ---
Author Name Unknown Organization [facility] Address [address] [facility] [place] [address] Phone [phone] Care Team Providers Care Centrifugal Extractor Operator Name Role Phone Nataly Jama PA-C Primary Care Provider Encounter Details Date Type Department Care Team (Late st Contact Info) Description 09/07/2024 Telephone Cardiology, [place] [address] [facility] [place] [address] Carmelina Gonzalez CRNP 400 [facility] [place] [phone] Allergies Active Allergy Reactions Criticality Noted Date [...] Capsule by mouth in the morning. Active Hurley-3 1000 MG Oral Capsule Take 1 Capsule [...] INFORMATION 09/25/2017 Overview (09/25/2017): Received records from [facility]. Chest x-ray in January of 2017 [...] Overview (12/12/2020): DO NOT DELETE [facility] DETECT Study: Project # [id number], Equipment Mechanic: Ty Guzman, PhD. SUMMARY: Goal: Establish test [...] contact study staff at ; after hours Equipment Mechanic via the [facility] hospital restrike hammer operator . Please contact study team before resolving/deleting from patients problem list. Study phone number: [phone]. Diagnosis changed due to Research Module. Go to Snapshot for study details. Encounter for examination fo r normal comparison and control in clinical research program 06/04/2018 04/26/2022 Overview (12/12/2020): DO NOT DELETE - [facility] DETECT Study: Project # [id number], Equipment Mechanic: Reno Fonseca, MS, MPH. SUMMARY: Goal: Establish [...] contact study staff at ; after hours Equipment Mechanic via the [facility] hospital restrike hammer operator . - Please contact study team before resolving/deleting from patients problem list. Study phone number: [phone]. Diagnosis changed due to Research Module. Go to Snapshot for study details. documented as of this encounter (statuses as of 09/07/2024) Immunizations Name Administration Dates Next Due Pneumococcal Polysaccharide PPV23 (Pneumovax) Season Influenza, Quad, PF, Adjuvanted, 65+ Yrs, IM (FLUAD) 07/08/2020 Seasonal Influenza, Quadrivalent, No Preserve, I M 06/02/2018 TDAP (age 10 and older)(Boostrix) 01/24/2017 Varicella Zoster Vaccine (Adult) 12/25/2015,01/2015 documented as of this encounter Social History [...] No 10/07/2023 Does the household have a inscription house health centerlar source of income? (Household - for ages [...] on file documented as of this encounter Miscellaneous Notes * Telephone Encounter - Vinod Martinez LPN - 09/07/2024 12:32 PM EST Faxed * Telephone Encounter - Carmelina Gonzalez CRNP - 09/07/2024 12:12 PM EST Patient is scheduled for transforaminal lumbar interbody fusion at L4-5 with bilateral decompression and posterior instrumented fusion with Dr. Amol Camara with [facility] on . Can we fax my office visit note from today (09/07/24) to their office? Thank you! documented in this encounter Plan of Treatment Upcoming Encounters Date Type Department Care Team (Late st Contact Info) Description 09/22/2024 10:00 AM EST Office Visit [facility] [address] [place] [phone] Je Bennett CRNP [address] [place] [phone] 12/31/2024 10:00 AM EDT Nurse Only Ancillary, [place] [address] [place] [address] [place], Nurse Annual Wellness [address] [place] [address] 02/02/2025 1:30 PM EDT Office Visit CLOTH HAND Urology [place] 400 [facility] [place], [place] [phone] Handy Bravo MD [address] [place] [address] 09/09/2025 10:00 AM EST Office Visit Cardiology, [place] [address] [place] [address] Carmelina Gonzalez CRNP 400 [facility] [place] [phone] Health Maintenance Due Date Last Done Comments [...] this encounter Medical Devices Implanted Type Area Manager Corporate Communications Device Identifier Shelf Expiration Date Model / Serial / Lot Pacemaker-05/31/2020 Implanted:01/2020 (Quantity not on file) Pacemaker [employer] : CARDIAC SURGERY W1DR01 EMETERIO / / Description:W1DR01 [id number] H 5076 [id number] Lens Intraoc 20.0 - [id number] - [id number] Implanted:Qty : 1 on 11/11/2018 by Russell Lima MD at OR [facility] Right: Eye BAUSCH & LOMB 03/25/2023 [id number] / [id number] / [id number] Lens Intraoc 20.0 - [id number] - [id number] Implanted:Qty : 1 on 11/20/2018 by Russell Lima MD at OR [facility] Left: Eye BAUSCH & LOMB 06/25/2023 [id number] / [id number] / [id number] documented as of this encounter Care Teams Centrifugal Extractor Operator Relationship Specialty Start Date End Date Nataly Jama PA-C [address] [place] [address] [place] [address] PCP - General Physician Projector Operator 03/04/24 documented as of this encounter
[2024-10-02] MEDS: LACTATED RINGER'S 1,000 ML IV SCH (06:39)
[2024-10-02] MEDS: LR 60ML/HR IV SCH (06:39)
[2024-10-02] MEDS ORDERED: ATROPINE SULFATE 0.1 MG/ML 10ML SYR IV PRN (06:54)
[2024-10-02] MEDS ORDERED: ePHEDrine sulfate 50 MG/ML AMP IV PRN (06:54)
[2024-10-02] MEDS ORDERED: HYDROmorphone INJ 2 MG/ML SYR/VIAL IV PRN (06:54)
[2024-10-02] MEDS ORDERED: ONDANSETRON INJ 2 MG/ML 2 ML VIAL IV PRN ×2 (06:54→14:31)
[2024-10-02] MEDS ORDERED: REMIFENTANIL HCL 1 MG VIAL IV ONE (07:00)
[2024-10-02] MEDS ORDERED: PROPOFOL IV EMULSION 10 MG/ML 100 ML VIAL IV ONE ×2 (07:01→07:04)
[2024-10-02] MEDS ORDERED: PROPOFOL IV EMULSION 10 MG/ML 20 ML VIAL IV ONE (07:04)
[2024-10-02] MEDS ORDERED: ROCURONIUM BROMIDE 10 MG/ML 5 ML VIAL IV ONE (07:04)
[2024-10-02] MEDS ORDERED: ONDANSETRON INJ 2 MG/ML 2 ML VIAL ONE ×2 (07:04→11:09)
[2024-10-02] MEDS ORDERED: DEXAMETHASONE SOD INJ 4 MG/ML VIAL ONE (07:04)
[2024-10-02] MEDS ORDERED: MIDAZOLAM HCL 1 MG/ML 2ML VIAL ONE (07:05)
[2024-10-02] MEDS ORDERED: fentaNYL citrate PF 100 MCG/2 ML VIAL ONE (07:05)
[2024-10-02] MEDS ORDERED: SUCCINYLCHOLINE CHLORIDE 20 MG/ML 10 ML VIAL IV ONE (07:09)
[2024-10-02] MEDS ORDERED: ePHEDrine sulfate 50 MG/ML AMP ONE (07:13)
[2024-10-02] MEDS ORDERED: PHENYLEPHRINE HCL 10 MG/ML VIAL ONE (07:14)
--- NOTE | 2024-10-02 07:27 | History & Physical Bridge Note ---
Date of Service October 02, 2024 History & Physical Bridge Note I have examined the patient, reviewed the History & Physical and in the interval since the performance of the History & Physical I have noted the following changes of clinical significance: no changes noted
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
[2024-10-02] MEDS ORDERED: LIDOCAINE 2% 2 ML VIAL/AMP(20MG/ML) INFIL ONE (07:53)
[2024-10-02] MEDS: ceFAZolin 2000MG 2,000 MG/15 ML SYR IV SCH ×2 (08:25→17:10)
[2024-10-02] MEDS: VANCOMYCIN HCL 1000MG/20ML VIAL ONE (09:05)
[2024-10-02] MEDS: BUPIVACAINE 0.5 % 5 MG/1 ML MPF 30ML VIAL ONE (11:15)
[2024-10-02] MEDS: FLOSEAL HEMOSTATIC MATRIX 10ML TOP ONE (11:15)
[2024-10-02] MEDS ORDERED: HYDROmorphone INJ 2 MG/ML SYR/VIAL ONE (11:16)
--- NOTE | 2024-10-02 11:25 | Post Operative Brief Note ---
PG Immediate Post Op with CF Date of Surgery October 02, 2024 Pre & Post Diagnosis Operation Date: 10/02/24 07:30 Pre-Op Diagnosis: Lumbar stenosis without neurogenic claudication, lumbar radicular pain, lumbar spondylosis Post-Op Diagnosis: Lumbar stenosis without neurogenic claudication, lumbar radicular pain, lumbar spondylosis I identified the patient and participated in the time-out.: Yes Procedure Operation Date: 10/02/24 07:30 Actual Procedures p L4-L5 Transforaminal Lumbar Interbody Fusion with CT Navigation, Spinal Cord Monitoring(Not Applicable) - Amol Camara MD Surgeon Amol Camara MD Coke Wheeler Dejuan Hull PA-C Estimated Blood Loss 200 Findings Consistent with Post-Op Diagnosis Specimens Specimen Description: None per surgeon Drains Paul Drain
--- NOTE | 2024-10-02 11:27 | Fluoroscopy Report ---
FL lumbar spine 2-3V CLINICAL HISTORY: L4-L5 LUMBAR INTERBODY COMPARISON STUDY: None FLUOROSCOPY TIME: 29 seconds FLUOROSCOPY IMAGES: 5 EXPOSURE DOSE: 28 mGy FINDINGS: Fluoroscopy was provided for lower lumbar metallic fusion. IMPRESSION: Intraoperative fluoroscopy. ACT 112: Negative or not required by law. Electronically signed by: Ty Christensen M.D. 10/02/2024 11:26 AM
--- NOTE | 2024-10-02 11:53 | Operative Report ---
PG Post Operative Report Pre & Post Diagnosis PRE-OPERATIVE DIAGNOSIS Lumbosacral spondylosis Lumbar stenosis without claudication Lumbar radiculopathy POST-OPERATIVE DIAGNOSIS Lumbosacral spondylosis Lumbar stenosis without claudication Lumbar radiculopathy I identified the patient and participated in the time-out.: Yes Procedure 1. TRANSFORAMINAL LUMBAR INTERBODY FUSION, POSTEROLATERAL FUSION L4-5 (49378) 2. PLACEMENT OF INTERBODY DEVICE FOR FUSION L4-5 (67730) 3. POSTERIOR NON-SEGMENTAL SPINAL INSTRUMENTATION L4-5 (14836) 4. COMPLETE LAMINECTOMY AT SITE OF INTERBODY FUSION L4 (35111) 5. USE OF CT-GUIDED STEREOTACTIC NAVIGATION FOR SPINAL INSTRUMENTATION (68183) 6. USE OF LOCAL AUTOGRAFT/ALLOGRAFT FOR SPINAL FUSION (04419, 82048) IMPLANTS: [employer] ModuleX Titanium Pedicle Screws [employer] Catalyft Interbody Spacer Surgeon Amol Camara MD [employer] Dejuan Hull PA-C Estimated Blood Loss 200 Findings Consistent with Post-Op Diagnosis Specimens None Drains Paul Anesthesia Type General Complications none Disposition Disposition: Recovery Room Indications Patient was met in the clinic setting where patient had severe radiculopathy which did not respond to conservative care. We discussed continued conservative care versus lumbar interbody fusion to completely remove the pressure on the nerve as well as the remainder of the disc. Risks and benefits were discussed with the patient in clinic and elected to proceed. Risks and benefits are clearly documented in the patient's clinic note. Description of Procedure I met the patient in the preoperative holding area, we again discussed the procedure to be performed today and patient agreed to proceed. Patient was brought to the operating room and placed under general anesthesia. Neuro monitoring leads attached, SCDs for DVT prophylaxis, received IV antibiotic for infection prophylaxis. Positioning: Following intubation, the patient was placed prone onto the Nii table. Maximum obtainable lumbar lordosis was achieved. Care was taken to position padding under potential pressure points. Prepping and Draping: Patient was prepped and draped in the usual sterile fashion. Verbal time-out was performed and identified the patient by name and date of , all were in agreement on the correct procedure and we elected to proceed. Initial intraoperative CT scan: Following the time-out, a hip pain with placed for navigation. The [employer] O arm was then brought in an intraoperative CT scan was performed. Images were uploaded to the in room stealth navigation unit for stereotactic guided instrumentation of the posterior lumbar spine. Incision and Exposure: An incision was made between the spinous processes of L4 and L5. Electrocautery was utilized to control all bleeding. I went through the subcutaneous layer exposing the lumbodorsal fascia. The subcutaneous layer was stripped off to the side to gain exposure to the fascial layers. I carried out subperiosteal dissection down along the spinous processes and out the lamina to expose the L4-5 lamina. I then dissected out to expose the L4 and L5 transverse processes bilaterally. The facet capsules were completely removed within the fusion range. Insertion of Pedicle Screws Bilaterally: Navigated bur was used to breech the cortex at each pedicle screw start point. I then used a navigated awl to create a tunnel at each pedicle bilaterally. The navigation unit was then used to measure the appropriate screw size. Pedicle screws of the appropriate size were then placed bilaterally from L5 to L4 using navigated screwdriver. EMG was performed on all screw with appropriate threshold without concern. Motor evoked potentials were run without change. Second Intraoperative CT Scan for Stereotactic Navigation: After placement of the pedicle screw instrumentation the O arm was brought back in. A 2nd intraoperative CT scan was performed. The images were uploaded to the in-room viewer and I verified personally that all pedicle screw instrumentation was in good position without evidence of breach. Transforaminal Lumbar Interbody Fusions, Decompressions, Posterior Fusion: Next, a complete laminectomy was performed at the L4 level. The spinous process was removed with Leksell rongeur and morselized for bone graft. The lamina was thinned with a high-speed bur and the remainder of the lamina was removed with Kerrison punch with a Graff used to protect the dura. Ligamentum flavum was completely removed at this level. This provided excellent decompression of the bilateral traversing nerve roots over the disc space at L4-5. This bilateral decompression was greater than required for insertion of an interbody cage. A complete facetectomy was performed at the symptomatic side to allow placement of the interbody cage. After adequate nerve root decompression, I turned my attention to performing a transforaminal lumbar interbody fusion. I performed a complete discectomy at L4-5. Distraction was done with pedicle screw based distractors. The cartilaginous endplates were removed with a series of curettes and rongeurs. Sclerotic bleeding bone was seen at both endplates following complete evacuation and cleaning of the disc space. Local autograft bone harvested from the laminectomy was packed into the disc space along with allograft bone. A TLIF cage was selected after using a trial to determine the appropriate size. The cage was then impacted to appropriate depth under fluoroscopy and expanded. I then decorticated the remaining posterior lateral facet joints at L4-5 as well as transverse processes. The posterolateral gutters were packed with allograft material as well as the remainder of the local bone harvested from the laminectomies to encourage posterolateral fusion. Preformed lumbar rods were then placed and set screws applied and final tightened. Intraoperative fluoroscopic images were obtained, confirming appropriate screw and cage position. Vancomycin powder was placed on the wound edges during closure as a standard prophylactic measure. A standard layer closure was done over a deep drain using strata fix suture. Following completion of the closure and application sterile dry compressive dressing, the patient was transferred back to the supine position on stretcher. Anesthesia was reversed, the patient extubated, and brought to recovery room in stable condition having tolerated the procedure well. I attest to the content of the Intraoperative Record and any orders documented therein. Any exceptions are noted below.
[2024-10-02] MEDS: fentaNYL citrate PF 100 MCG/2 ML VIAL IV PRN (12:04)
[2024-10-02] MEDS: HYDROmorphone INJ 1 MG/ML SYRINGE IV PRN ×2 (12:21→15:59)
--- NOTE | 2024-10-02 13:27 | Anesthesiology Progress Note ---
Date of Service October 02, 2024 Anesthesia Post Procedure Vital Signs Vital Signs: Temp Pulse Resp BP Pulse Ox O2 Del Method O2 Flow Rate 10/02/24 13:20 69 12 133/74 97 Nasal Cannula 2 10/02/24 13:10 68 12 149/69 H 97 Nasal Cannula 2 10/02/24 13:00 68 12 139/70 97 Nasal Cannula 2 10/02/24 12:50 67 11 L 135/70 98 Nasal Cannula 2 10/02/24 12:40 64 12 144/79 H 98 Nasal Cannula 2 10/02/24 12:30 64 10 L 137/90 98 Oxymask 4 10/02/24 12:20 62 13 137/75 99 Oxymask 8 10/02/24 12:10 70 13 155/72 H 100 Oxymask 8 10/02/24 12:00 70 20 114/96 100 Oxymask 8 10/02/24 11:50 36.0 C L 74 14 165/87 H 100 Oxymask 8 10/02/24 06:09 36.7 C 65 18 152/78 H 95 Room Air Pain Intensity Back: Pain Intensity: 7 Transfer of Care Handoff Completed per policy Notes Mental Status: alert / awake / arousable Patient Amnestic to Procedure: Yes Nausea / Vomiting: adequately controlled Pain: adequately controlled Airway Patency, RR, SpO2: stable & adequate BP & HR: stable & adequate Hydration State: stable & adequate Anesthetic Complications: no major complications apparent and Pt Satisfied with anesthetic care Notes: Pt with chronic pain very manageably at present time, no issues good for d/c moves all extremities
--- NOTE | 2024-10-02 14:25 | Electrocardiogram Report ---
Test Reason : Blood Pressure : */* mmHG Vent. Rate : 70 BPM Atrial Rate : 70 BPM P-R Int : 156 ms QRS Dur : 150 ms QT Int : 498 ms P-R-T Axes : 67 -52 110 degrees QTcB Int : 537 ms Atrial-sensed ventricular-paced rhythm Abnormal ECG When compared with ECG of 04-Sep-2024 12:36, Vent. rate has increased by 4 bpm Confirmed by Hardeep Dickerson ([id number]) on 10/02/2024 2:24:51 PM Referred By: Amol Camara Confirmed By: Hardeep Dickerson
[2024-10-02] MEDS ORDERED: PROMETHAZINE 12.5 MG/50.5 ML BAG IV PRN (14:31)
[2024-10-02] MEDS ORDERED: SOD PHOSPHATE/SOD BIPHOSPHATE ENEMA 132 ML BTL PR PRN (14:31)
[2024-10-02] MEDS ORDERED: bisacodyL 10 MG SUPP PR PRN (14:31)
[2024-10-02] MEDS ORDERED: MAGNESIUM HYDROXIDE SUSP 30 ML UDC PO PRN (14:31)
[2024-10-02] MEDS ORDERED: FAMOTIDINE 20 MG TAB PO PRN (14:31)
[2024-10-02] MEDS ORDERED: DO NOT ADMINISTER FLU VACCINE PRN (14:31)
[2024-10-02] MEDS ORDERED: DO NOT ADMINISTER PNEUMOCOCCAL VACCINE PRN (14:31)
[2024-10-02] MEDS ORDERED: METOCLOPRAMIDE HCL INJ 5 MG/ML 2 ML VIAL IV PRN (14:31)
[2024-10-02] MEDS ORDERED: ACETAMINOPHEN 500 MG TAB PO PRN (14:31)
[2024-10-02] MEDS ORDERED: diphenhydrAMINE Capsule 25 MG CAP PO PRN (14:31)
[2024-10-02] MEDS ORDERED: NALOXONE HCL 0.4 MG/1 ML VIAL/CARP IV PRN (14:31)
[2024-10-02] MEDS ORDERED: oxyCODONE/ACETAMINOPHEN 5mg/325mg TAB PO PRN (14:31)
[2024-10-02] MEDS ORDERED: hydrOXYzine HCl 25 MG TAB PO PRN (14:31)
[2024-10-02] MEDS ORDERED: ONDANSETRON 4 MG OD TAB PO PRN (14:31)
[2024-10-02] MEDS ORDERED: LORazepam 2 MG/1 ML VIAL IV PRN (14:31)
[2024-10-02] MEDS ORDERED: LORazepam 0.5 MG TAB PO PRN (14:31)
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
[2024-10-02] MEDS: HYDROmorphone INJ 0.5 MG/0.5 ML SYR IV PRN (20:35)
[2024-10-02] MEDS: DOCUSATE SODIUM/SENNA 50/8.6MG TAB PO SCH (20:35)
[2024-10-02] MEDS ORDERED: MAGNESIUM GLYCINATE PO SCH (21:00)
[2024-10-03] MEDS: ALPRAZolam 0.25 MG TABLET PO PRN (00:11)
[2024-10-03] MEDS: ALUMINUM/MAGNESIUM SUSP 30 ML UDC PO PRN (00:15)
[2024-10-03] MEDS: POLYETHYLENE (MIRALAX) 17 GM PACK PO SCH (06:11)
[2024-10-03 06:44] LABS: Basophils # (auto) 0.02 K/uL (0.00-0.20); Basophils % (auto) 0.2 %; Eosinophils # (auto) 0.01 K/uL (0.00-0.50); Eosinophils % (auto) 0.1 %; Hematocrit (blood only) 37.1 % (37.0-47.0); Hemoglobin 12.6 g/dl (12.0-16.0); Immature Granulocytes # (auto) 0.16 K/uL (0.01-0.20); Immature Granulocytes % (auto) 1.3 %; Lymphocytes % (auto) 8.6 %; Mean Corpuscular Hemoglobin 30.6 pg (25.0-34.0); Monocytes # (auto) 1.23 K/uL (0.11-0.59); Monocytes % (auto) 9.7 %; Neutrophils # (auto) 10.22 K/uL (1.40-6.50); Neutrophils % (auto) 80.1 %; Platelet Count 212 K/uL (130-400); RDW Standard Deviation 42.7 fL (36.4-46.3); Red Blood Count 4.12 M/uL (4.20-5.40); White Blood Count 12.74 K/ul (4.8-10.8)
[2024-10-03 07:06] LABS: BUN Creatinine Ratio 25.4 (10-20); Calcium 8.5 mg/dl (8.6-10.3); Creatinine Clr Calc Pharmacy 77.1 ml/min; Potassium 4.1 mmol/L (3.5-5.1)
[2024-10-03] MEDS: CHOLECALCIFEROL 25 MCG (1000 UNITS) TAB PO SCH (08:41)
[2024-10-03] MEDS: FOLIC ACID 400 MCG TAB PO SCH (08:41)
[2024-10-03] MEDS: ASCORBIC ACID 500 MG TAB PO SCH (08:41)
[2024-10-03] MEDS ORDERED: NON-FORMULARY MEDICATION (Flaxseed Oil 1,000 mg Capsule) PO SCH (09:00)
[2024-10-03] MEDS ORDERED: NON-FORMULARY MEDICATION (Coenzyme Q10 [Coq-10] 100 mg Capsule) PO SCH (09:00)
[2024-10-03] MEDS ORDERED: NON-FORMULARY MEDICATION (Ascorbic Acid-Vitamin E-Biotin [Hair, Skin, Nails With Biotin] 7 PO SCH (09:00)
[2024-10-03] MEDS ORDERED: NON-FORMULARY MEDICATION (Alpha Lipoic Acid 200 mg Capsule) PO SCH (09:00)
[2024-10-03] MEDS ORDERED: NON-FORMULARY MEDICATION (Cranberry 500 mg Capsule) PO SCH (09:00)
--- NOTE | 2024-10-03 09:22 | Orthopedic Progress Note ---
Date of Service October 03, 2024 Assessment & Plan (1) S/P lumbar fusion: (2) Lumbar spondylosis: (3) Lumbar radicular pain: (4) Lumbar stenosis without neurogenic claudication: Plan s/p L4-5 TLIF doing well, no radicular complaints advance with PT, mobilize as tolerated PRN percocet and tizanidine for pain control SCDs for DVT ppx cont drain caldwell out when ambulating diet as tolerated appreciate hospitalist recs possibly home tomorrow as long as drain output remains low, pain controlled Subjective s/p TLIF, KEREN overnight, no radicular complaints, some incisional pain Review of Systems All systems reviewed & are unremarkable except as noted in HPI & below. Physical Exam 5/5 strength bilateral L2-S1 myotomes SILT L2-S1 dermatomes Drain functioning Results & Data Results & Data Laboratory Results labs reviewed, hgb down 1.9 as expected post op Diagnostic Findings . PG Care Time/CCT Total # of Minutes Spent Total Time Spent with Patient: Total time spent is greater than 50% in coordination of care (as documented) at patient's floor/unit and/or counseling patient: Coding Level of Care Code 90451 Post Operative Follow-Up Diagnoses S/P lumbar fusion Z98.1 Lumbar spondylosis M47.816 Lumbar radicular pain M54.16 Lumbar stenosis without neurogenic claudication M48.061
--- NOTE | 2024-10-03 11:22 | Hospitalist Progress Note ---
Date of Service October 03, 2024 Assessment & Plan (1) Lumbar stenosis without neurogenic claudication: Plan Assessment and plan: Lumbar stenosis Lumbar radicular pain Patient is a status post L4-L5 transforaminal lumbar interbody fusion with CT navigation, spinal cord monitoring. Pain management, bowel regimen. DVT prophylaxis per primary team. Labs in a.m., watch out for blood loss anemia. History of bradycardia: Status post dual-chamber pacemaker. 10/03: Reported some dizziness when trying to work with physical therapy yesterday. Could be secondary to anesthesia. Check orthostatic BPs We will continue to follow with you. DVT prophylaxis: SCDs Full code Admission and Anticipated Discharge Date Admission Date: October 02, 2024 Supervising Physician Co-Signing Physician Notes I have discussed the case with the collaborating advanced practitioner. I agree with the above PN. I have reviewed and confirmed the patients medical history, the findings on physical examination, and the patients diagnosis and treatment plan with Eveline MENA and agree with the information documented. In short, Ms. Crum is s/p lumbar decompression for which we are consulted post op med comanagement. Patient tolerated procedure and doing well post op I spent a total of 5 minutes coordinating, documenting, and providing care for this patient excluding time spent in the performance of separately billed services. All of the aforementioned completed outside of collaborating with the assigned advanced practitioner for a full treatment plan. I have reviewed the advanced practitioner's documentation, and I agree with, and take responsibility for the plan of care Subjective Patient seen and examined. No apparent distress. Reports her pain is well- controlled. Does report some dizziness when trying to work with physical therapy yesterday. Denies any chest pain or shortness of breath. Review of Systems Review of Systems: All systems reviewed & are unremarkable except as noted in HPI & below Physical Exam Constitutional: WD/WN, vitals as above Eyes: PERRL, conjunctivae normal, anicteric sclerae ENMT: external ear and nose normal, oropharynx normal Neck: trachea midline, no thyromegaly Respiratory: normal respiratory effort, lungs clear to auscultation Cardiovascular: RRR, no murmur, no edema Gastrointestinal (Abdomen): normal bowel sounds, soft, nontender, no hepatosplenomegaly Musculoskeletal: no cyanosis or clubbing, extremities motor strength 5/5 Skin: no rashes, warm and dry Neurologic: PERRL, EOMI, accommodation nl, no face palsy, no dysarthria Psychiatric: A+Ox3, euthymic affect Genitourinary: no vaginal lesions, no adnexal mass Lymphatic: no cervical or axillary lymphadenopathy Results & Data Results & Data Vital Signs (Past 12 Hours) Vital Signs Temp Pulse Resp BP Pulse Ox O2 Del Method 10/03/24 06:52 36.9 C 75 16 119/62 94 Room Air 10/03/24 03:17 36.7 C 80 18 152/73 H 94 Room Air 10/02/24 23:23 36.6 C 72 14 138/75 93 Room Air Diagnostic Findings Laboratory Results WBC 12.74 K/ul (4.8-10.8) H 10/03/24 06:21 RBC 4.12 M/uL (4.20-5.40) L 10/03/24 06:21 Hgb 12.6 g/dl (12.0-16.0) 10/03/24 06:21 Hct 37.1 % (37.0-47.0) 10/03/24 06:21 MCV 90.0 fL (80.0-100.0) 10/03/24 06:21 MCH 30.6 pg (25.0-34.0) 10/03/24 06:21 MCHC 34.0 g/dL (32.0-36.0) 10/03/24 06:21 RDW Std Deviation 42.7 fL (36.4-46.3) 10/03/24 06:21 RDW Coeff of Amando 13.0 % (11.5-14.5) 10/03/24 06:21 Plt Count 212 K/uL (130-400) 10/03/24 06:21 MPV 10.0 fL (9.4-12.4) 10/03/24 06:21 Immature Gran % (Auto) 1.3 % 10/03/24 06:21 Neut % (Auto) 80.1 % 10/03/24 06:21 Lymph % (Auto) 8.6 % 10/03/24 06:21 [place] % (Auto) 9.7 % 10/03/24 06:21 Eos % (Auto) 0.1 % 10/03/24 06:21 Baso % (Auto) 0.2 % 10/03/24 06:21 Neut # (Auto) 10.22 K/uL (1.40-6.50) H 10/03/24 06:21 Lymph # (Auto) 1.10 K/uL (1.20-3.40) L 10/03/24 06:21 [place] # (Auto) 1.23 K/uL (0.11-0.59) H 10/03/24 06:21 Eos # (Auto) 0.01 K/uL (0.00-0.50) 10/03/24 06:21 Baso # (Auto) 0.02 K/uL (0.00-0.20) 10/03/24 06:21 Immature Gran # (Auto) 0.16 K/uL (0.01-0.20) 10/03/24 06:21 Sodium 139 mmol/L (136-145) 10/03/24 06:21 Potassium 4.1 mmol/L (3.5-5.1) 10/03/24 06:21 Chloride 104 mmol/L (98-107) 10/03/24 06:21 Carbon Dioxide 27 mmol/L (21-32) 10/03/24 06:21 Anion Gap 8 (3-11) 10/03/24 06:21 BUN 15 mg/dl (6-23) 10/03/24 06:21 Creatinine 0.59 mg/dl (0.6-1.2) L 10/03/24 06:21 Est Cr Clr Drug Dosing 77.1 ml/min 10/03/24 06:21 eGFR 91.05 10/03/24 06:21 BUN/Creatinine Ratio 25.4 (10-20) H 10/03/24 06:21 Glucose 121 mg/dl (70-99(Fasting)) H 10/03/24 06:21 Calcium 8.5 mg/dl (8.6-10.3) L 10/03/24 06:21
--- NOTE | 2024-10-03 11:35 | XRay Report ---
XR lumbar spine 2-3V HISTORY: 78 years-old Female post-op spine surgery COMPARISON: CT 10/02/2024 TECHNIQUE: 2 views of the lumbar spine FINDINGS: Laminectomy with discectomy, posterior interbody valeria and screw fusion at L4-L5. Hardware appears inta ct. Surgical drainage catheter with overlying skin sumi. No acute fracture. Intervertebral disc sp arron narrowing with facet arthrosis and spondylotic spurring redemonstrated along with lumbar levoscol iosis. Cholecystectomy. Partially imaged pacer leads. IMPRESSION: Expected postoperative changes of the lumbar spine as above. ACT 112: Negative or not required by law. The above report was generated using voice recognition software. It may contain grammatical, syntax o r spelling errors. Electronically signed by: Layton Doyle M.D. 10/03/2024 11:33 AM
[2024-10-03] MEDS: tiZANidine HCL 4 MG TABLET PO PRN (20:55)
--- NOTE | 2024-10-04 09:50 | Orthopedic Progress Note ---
Date of Service October 04, 2024 Assessment & Plan (1) S/P lumbar fusion: wbat, aat with PT Mobilize, SCDs diet as tolerated, work on bowel regimen cont drain, if less than 50cc over next 8 hours can dc dressing change to gauze and paper tape look into rehab options, would benefit from inpatient rehab given difficulty with mobilizing Subjective s/p Lumbar Fusion, no issues overnight. Pain controlled, slow progress with PT Review of Systems All systems reviewed & are unremarkable except as noted in HPI & below. Physical Exam 5/5 strength bilateral L2-S1 myotomes SILT L2-S1 drain functioning Results & Data Results & Data Laboratory Results . Diagnostic Findings lumbar x rays reviewed, instrumentation in stable position PG Care Time/CCT Total # of Minutes Spent Total Time Spent with Patient: Total time spent is greater than 50% in coordination of care (as documented) at patient's floor/unit and/or counseling patient: Coding Level of Care Code 73702 Post Operative Follow-Up Diagnoses S/P lumbar fusion Z98.1
--- NOTE | 2024-10-04 12:17 | Hospitalist Progress Note ---
Date of Service October 04, 2024 Assessment & Plan (1) Lumbar stenosis without neurogenic claudication: Plan Assessment and plan: Lumbar stenosis Lumbar radicular pain Patient is a status post L4-L5 transforaminal lumbar interbody fusion with CT navigation, spinal cord monitoring. Pain management, bowel regimen. DVT prophylaxis per primary team. Labs in a.m., watch out for blood loss anemia. History of bradycardia: Status post dual-chamber pacemaker. 10/04: Orthostatic BPs negative. Patient will need rehab on DC. Check labs in AM. We will continue to follow with you. DVT prophylaxis: SCDs Full code Admission and Anticipated Discharge Date Admission Date: October 02, 2024 Subjective Patient seen and examined. No apparent distress. Reports her pain is well- controlled. Reported her dizziness resolved. Denies any other complaints. Review of Systems Review of Systems: All systems reviewed & are unremarkable except as noted in HPI & below Physical Exam Constitutional: WD/WN, vitals as above Eyes: PERRL, conjunctivae normal, anicteric sclerae ENMT: external ear and nose normal, oropharynx normal Neck: trachea midline, no thyromegaly Respiratory: normal respiratory effort, lungs clear to auscultation Cardiovascular: RRR, no murmur, no edema Gastrointestinal (Abdomen): normal bowel sounds, soft, nontender, no hepatos plenomegaly Musculoskeletal: no cyanosis or clubbing, extremities motor strength 5/5 Skin: no rashes, warm and dry Neurologic: PERRL, EOMI, accommodation nl, no face palsy, no dysarthria Psychiatric: A+Ox3, euthymic affect Genitourinary: no vaginal lesions, no adnexal mass Lymphatic: no cervical or axillary lymphadenopathy Results & Data Results & Data Vital Signs (Past 12 Hours) Vital Signs Temp Pulse Resp BP Pulse Ox O2 Del Method 10/04/24 06:59 37 C 82 16 137/73 93 Room Air Diagnostic Findings Laboratory Results WBC 12.74 K/ul (4.8-10.8) H 10/03/24 06:21 RBC 4.12 M/uL (4.20-5.40) L 10/03/24 06:21 Hgb 12.6 g/dl (12.0-16.0) 10/03/24 06:21 Hct 37.1 % (37.0-47.0) 10/03/24 06:21 MCV 90.0 fL (80.0-100.0) 10/03/24 06:21 MCH 30.6 pg (25.0-34.0) 10/03/24 06:21 MCHC 34.0 g/dL (32.0-36.0) 10/03/24 06:21 RDW Std Deviation 42.7 fL (36.4-46.3) 10/03/24 06: RDW Coeff of Amando 13.0 % (11.5-14.5) 10/03/24 06:21 Plt Count 212 K/uL (130-400) 10/03/24 06:21 MPV 10.0 fL (9.4-12.4) 10/03/24 06:21 Immature Gran % (Auto) 1.3 % 10/03/24 06:21 Neut % (Auto) 80.1 % 10/03/24 06:21 Lymph % (Auto) 8.6 % 10/03/24 06:21 [place] % (Auto) 9.7 % 10/03/24 06:21 Eos % (Auto) 0.1 % 10/03/24 06:21 Baso % (Auto) 0.2 % 10/03/24 06:21 Neut # (Auto) 10.22 K/uL (1.40-6.50) H 10/03/24 06:21 Lymph # (Auto) 1.10 K/uL (1.20-3.40) L 10/03/24 06:21 [place] # (Auto) 1.23 K/uL (0.11-0.59) H 10/03/24 06:21 Eos # (Auto) 0.01 K/uL (0.00-0.50) 10/03/24 06:21 Baso # (Auto) 0.02 K/uL (0.00-0.20) 10/03/24 06:21 Immature Gran # (Auto) 0.16 K/uL (0.01-0.20) 10/03/24 06:21 Sodium 139 mmol/L (136-145) 10/03/24 06:21 Potassium 4.1 mmol/L (3.5-5.1) 10/03/24 06:21 Chloride 104 mmol/L (98-107) 10/03/24 06:21 Carbon Dioxide 27 mmol/L (21-32) 10/03/24 06:21 Anion Gap 8 (3-11) 10/03/24 06:21 BUN 15 mg/dl (6-23) 10/03/24 06:21 Creatinine 0.59 mg/dl (0.6-1.2) L 10/03/24 06:21 Est Cr Clr Drug Dosing 77.1 ml/min 10/03/24 06:21 eGFR 91.05 10/03/24 06:21 BUN/Creatinine Ratio 25.4 (10-20) H 10/03/24 06:21 Glucose 121 mg/dl (70-99(Fasting)) H 10/03/24 06:21 Calcium 8.5 mg/dl (8.6-10.3) L 10/03/24 06:21 Impressions Lumbar Spine X-Ray 10/03/24 07:00 XR lumbar spine 2-3V HISTORY: 78 years-old Female post-op spine surgery COMPARISON: CT 10/02/2024 TECHNIQUE: 2 views of the lumbar spine FINDINGS: Laminectomy with discectomy, posterior interbody valeria and screw fusion at L4-L5. Hardware appears intact. Surgical drainage catheter with overlying skin sumi. No acute fracture. Intervertebral disc space narrowing with facet arthrosis and spondylotic spurring redemonstrated along with lumbar levoscoliosis. Cholecystectomy. Partially imaged pacer leads. IMPRESSION: Expected postoperative changes of the lumbar spine as above. ACT 112: Negative or not required by law. The above report was generated using voice recognition software. It may contain grammatical, syntax or spelling errors. Electronically signed by: Layton Dyole M.D. 10/03/2024 11:33 AM
[2024-10-05] MEDS: COUGH DROP (SUGAR FREE) LOZ 24 LOZ/1 BOX BUCCAL STA (01:05)
[2024-10-05 08:06] LABS: Hematocrit (blood only) 39.4 % (37.0-47.0); Hemoglobin 13.2 g/dl (12.0-16.0); Mean Corpuscular Hemoglobin 30.2 pg (25.0-34.0); Mean Corpuscular Hgb Conc 33.5 g/dL (32.0-36.0); Mean Corpuscular Volume 90.2 fL (80.0-100.0); Mean Platelet Volume 10.2 fL (9.4-12.4); Platelet Count 211 K/uL (130-400); RDW Coefficient of Variation 13.1 % (11.5-14.5); RDW Standard Deviation 43.3 fL (36.4-46.3); Red Blood Count 4.37 M/uL (4.20-5.40); White Blood Count 9.62 K/ul (4.8-10.8)
[2024-10-05 08:20] LABS: Albumin Globulin Ratio 1.3 (0.9-2); Albumin Level 3.5 gm/dl (3.4-5.0); BUN Creatinine Ratio 20.8 (10-20); Bilirubin,Total 0.9 mg/dl (0.2-1.0); Calcium 8.6 mg/dl (8.6-10.3); Creatinine Clr Calc Pharmacy 85.8 ml/min; Globulin 2.8 gm/dl (2.5-4.0); Potassium 3.8 mmol/L (3.5-5.1); Total Protein 6.3 gm/dl (6.0-8.3)
--- NOTE | 2024-10-05 09:14 | Hospitalist Progress Note ---
Date of Service October 05, 2024 Assessment & Plan (1) Lumbar stenosis without neurogenic claudication: Plan Assessment and plan: Lumbar stenosis Lumbar radicular pain Patient is a status post L4-L5 transforaminal lumbar interbody fusion with CT navigation, spinal cord monitoring. Pain management, bowel regimen. DVT prophylaxis per primary team. Labs in a.m., watch out for blood loss anemia. History of bradycardia: Status post dual-chamber pacemaker. 10/05: Patient will need rehab on DC. Labs are unremarkable No barriers to discharge from our standpoint. We will continue to follow with you. DVT prophylaxis: SCDs Full code Admission and Anticipated Discharge Date Admission Date: October 02, 2024 Subjective Patient seen and examined. No apparent distress. Reports her pain is well- controlled. Reported her dizziness resolved. Denies any other complaints. Physical Exam Constitutional: WD/WN, vitals as above Eyes: PERRL, conjunctivae normal, anicteric sclerae ENMT: external ear and nose normal, oropharynx normal Neck: trachea midline, no thyromegaly Respiratory: normal respiratory effort, lungs clear to auscultation Cardiovascular: RRR, no murmur, no edema Gastrointestinal (Abdomen): normal bowel sounds, soft, nontender, no hepatosplenomegaly Musculoskeletal: no cyanosis or clubbing, extremities motor strength 5/5 Skin: no rashes, warm and dry Neurologic: PERRL, EOMI, accommodation nl, no face palsy, no dysarthria Psychiatric: A+Ox3, euthymic affect Genitourinary: no vaginal lesions, no adnexal mass Lymphatic: no cervical or axillary lymphadenopathy Results & Data Results & Data Vital Signs (Past 12 Hours) Vital Signs Temp Pulse Resp BP Pulse Ox O2 Del Method 10/05/24 07:37 36.6 C 80 15 152/72 H 94 Room Air
--- NOTE | 2024-10-05 12:19 | Orthopedic Progress Note ---
Date of Service October 05, 2024 Assessment & Plan (1) S/P lumbar fusion: 78-year-old woman POD#3 s/p L4-5 TLIF, L4 laminectomy with CT navigation, doing well overall. Pain is controlled. Medically stable. She is neurologically intact to bilateral lower extremities. Plan: 1. DVT prophylaxis w/ regular ambulation/mobilization, SCDs. 2. Continue PT/OT. WBAT and AAT. 3. Dressing removed, drain discontinued (~60 cc over 12 hours was recorded most recently), and new dressing placed today. 4. Continue diet as tolerated and working on bowel regimen. 5. Disposition - plan to get her to the skilled/rehab side [facility] nursing facility. 6. F/u as scheduled on 09/14/24 @ 11:00 w/ Dr. Camara for first post-op visit. Subjective Patient is POD# 3 s/p L4-[address] navigation by Dr. Camara on 10/02/2024. Patient admits to low back pain at the surgical site, but this is relatively well-controlled with the medications. Denies CP, SOB, N/V, new L LE paresthesia. She does have some remaining pain/paresthesia in the left thigh, but this is improved compared to preoperatively. She understands that it will take some time for the nerve pathway to recover. Patient says that her drain did not put out too much overnight. She is attempting to get to the skilled/rehab side of [place], which is where she is currently residing in a cottage with her . However, she says that he is unable to help her on his own. Review of Systems All systems reviewed & are unremarkable except as noted in HPI & below. Physical Exam GENERAL: Speech and cognition is intact. Mood and affect is appropriate. Does not appear in acute distress. HEAD: Normocephalic; atraumatic. CHEST: Regular chest respiration and excursion. NEURO: Awake, alert, and oriented x 3. BACK: Dressing intact to lumbar spine; was marked that it was changed yesterday; dressing c/d/i w/ no saturation noted. No evidence of erythema, drainage, or abnormal warmth. [place] intact to lumbar midline incision and percutaneous iliac site. Drain intact with nylon suture, currently functioning. LOWER EXTREMITIES: Sensation intact to light touch of the bilateral L2-S1 dermatomes. Plantar/dorsiflexion intact bilaterally. NVI distally. R Hip flexion 5/5; knee extension 5/5; knee flexion 5/5; ankle dorsiflexion 5/5; ankle plantar flexion 5/5; EHL 5/5 L Hip flexion 5/5; knee extension 5/5; knee flexion 5/5; ankle dorsiflexion 5/5; ankle plantar flexion 5/5; EHL 5/5 Results & Data Results & Data Laboratory Results Laboratory Results - last 24 hr 10/05/24 07:02 WBC 9.62 RBC 4.37 Hgb 13.2 Hct 39.4 MCV 90.2 MCH 30.2 MCHC 33.5 RDW Std Deviation 43.3 RDW Coeff of Amando 13.1 Plt Count 211 MPV 10.2 Sodium 138 Potassium 3.8 Chloride 104 Carbon Dioxide 27 Anion Gap 7 BUN 11 Creatinine 0.53 L Est Cr Clr Drug Dosing 85.8 eGFR 93.43 BUN/Creatinine Ratio 20.8 H Glucose 115 H Calcium 8.6 Total Bilirubin 0.9 AST 22 ALT 64 H Alkaline Phosphatase 80 Total Protein 6.3 Albumin 3.5 Globulin 2.8 Albumin/Globulin Ratio 1.3 Diagnostic Findings . PG Care Time/CCT Total # of Minutes Spent Total Time Spent with Patient: Total time spent is greater than 50% in coordination of care (as documented) at patient's floor/unit and/or counseling patient: [place] [address] Post Operative Follow-Up Patient Type Established Medical Decision Making Low Complexity Diagnoses S/P lumbar fusion Z98.1
--- NOTE | 2024-10-06 12:49 | Orthopedic Progress Note ---
<Statement entered by Amol Camara MD - 10/06/24 13:20> plan of care reviewed and discussed with Layton Rock PA-C, agree, will work on discharge planning. Date of Service October 06, 2024 Assessment & Plan (1) S/P lumbar fusion: 78-year-old woman POD#4 s/p L4-5 TLIF, L4 laminectomy with CT navigation, doing well overall. Pain is controlled. Medically stable. She is neurologically intact to bilateral lower extremities. Plan: 1. DVT prophylaxis w/ regular ambulation/mobilization, SCDs. 2. Continue PT/OT. WBAT and AAT. 3. Dressing can be changed daily or as saturated. 4. Continue diet as tolerated and working on bowel regimen. 5. Disposition - plan to get her to the skilled/rehab [facility] nursing facility. 6. F/u as scheduled on 09/14/24 @ 11:00 w/ Dr. Camara for first post-op visit. Avril Griffin was seen and evaluated this morning resting comfortably in no apparent distress. She is currently status post day #4 of had an L4-L5 TLIF with CT defecation by Dr. Camara. She does note that she has slight discomfort still to her lower back where her surgery was completed but her bilateral legs are feeling great today. She has noted no new numbness down the legs today. She does note improvement from her preoperative state. She is currently awaiting placement at a skilled/rehab side [facility]. She is currently a [place] [facility] [place] . She denies any other concerns today. Review of Systems All systems reviewed & are unremarkable except as noted in HPI & below. Physical Exam . On physical examination of her lumbar spine, Dressing intact to lumbar spine; was marked that it was changed yesterday; dressing c/d/i w/ no saturation noted. No evidence of erythema, drainage, or abnormal warmth. [place] intact to lumbar midline incision and percutaneous iliac site. Drain intact with nylon suture, currently functioning. LOWER EXTREMITIES: Sensation intact to light touch of the bilateral L2-S1 dermatomes. Plantar/dorsiflexion intact bilaterally. NVI distally. R Hip flexion 5/5; knee extension 5/5; knee flexion 5/5; ankle dorsiflexion 5/5; ankle plantar flexion 5/5; EHL 5/5 L Hip flexion 5/5; knee extension 5/5; knee flexion 5/5; ankle dorsiflexion 5/5; ankle plantar flexion 5/5; EHL 5/5 Results & Data Results & Data Laboratory Results . Diagnostic Findings . PG Care Time/CCT Total # of Minutes Spent Total Time Spent with Patient: Total time spent is greater than 50% in coordination of care (as documented) at patient's floor/unit and/or counseling patient: Coding Level of Care Code 21111 Post Operative Follow-Up Diagnoses S/P lumbar fusion Z98.1
--- NOTE | 2024-10-06 15:21 | Hospitalist Progress Note ---
Date of Service October 06, 2024 Assessment & Plan (1) Lumbar stenosis without neurogenic claudication: (2) S/P lumbar fusion: (3) Lumbar spondylosis: (4) Lumbar radicular pain: (5) Pacemaker: Plan Patient 78-year-old female status post spinal surgery. Otherwise, few other medical comorbidities. Patient continues to do well Case management notes reviewed, anticipated discharge to [place] tomorrow Continue outpatient medications. Will sign off, please call with questions. ready for discharge from medical standpoint. Admission and Anticipated Discharge Date Admission Date: October 02, 2024 Subjective Patient is doing a little bit better each day. Does report some pain in the left lower extremity. This was the leg that was bothering her preop Physical Exam Physical Exam: Constitutional: Alert, sitting on edge of bed HEENT: Mucous membranes moist. Lungs: Clear to auscultation, decreased, no wheezes rales or rhonchi CV: S1-S2, regular Abdomen: Soft, nontender, nondistended Extremities: No significant edema Spine: Surgical dressing dry and intact Results & Data Results & Data Vital Signs (Past 12 Hours) Vital Signs Temp Pulse Resp BP Pulse Ox O2 Del Method 10/06/24 14:36 37.4 C 82 16 125/74 93 Room Air 10/06/24 11:14 36.7 C 85 18 144/74 H 96 Room Air 10/06/24 07:51 36.8 C 83 18 149/78 H 96 Room Air
--- NOTE | 2024-10-07 09:45 | Orthopedic Progress Note ---
Date of Service October 07, 2024 Assessment & Plan (1) S/P lumbar fusion: left knee pain and clicking, likely aggrevation of her chronic left knee pain, obtain xray and soft knee brace no radicular complaints ok for dc from spine standpoint, waiting on placement Subjective s/p TLIF, no radicular complaints. Feels like the clicking in her left knee is worse, hx of osteoarthritis. Also has some trochanteric bursa pain, nerve pain down the left leg is resolved. Review of Systems All systems reviewed & are unremarkable except as noted in HPI & below. Physical Exam 5/5 strength bilateral L2-S1 myotomes SILT L2-S1 tender to palpation left trochanteric bursa Results & Data Results & Data Laboratory Results . Diagnostic Findings . PG Care Time/CCT Total # of Minutes Spent Total Time Spent with Patient: Total time spent is greater than 50% in coordination of care (as documented) at patient's floor/unit and/or counseling patient: Coding Level of Care Code 63869 Post Operative Follow-Up Diagnoses S/P lumbar fusion Z98.1
--- NOTE | 2024-10-07 10:50 | Discharge Summary ---
Date of Service October 07, 2024 Admission HPI (Per Admitting) 09/01/24 OV note: "HPI: Patient is a very pleasant 78-year-old female here today for surgery for her recurrent left lower extremity pain. Reports the pain has been present for greater than 1 year duration, she describes radicular type pain originating in the upper gluteal region which extends out to the lateral thigh lateral knee sometimes distal to the knee on the outside of the calf consistent with L5 radiculopathy. She reports occasional medial knee pain as well. She has trialed epidural injections which provided excellent relief for only a few days. No strength deficits however the pain does significantly limit her activities." Admission Exam (Per Admitting) Physical exam: Constitutional: Well developed, appears stated age Psych: patient is coherent and answers questions appropriately, normal affect Eye: Normal gaze, no redness to sclera, pupils round and equal Pulm: Normal respiratory effort, no wheezing Cardiovascular: no significant peripheral edema, palpable DP/PT pulses Skin shows no rashes, lesions No midline or paraspinal tenderness with palpation over the lumbar spine, no stepoffs Motor strength is 5/5 in bilateral hip flexors, quadriceps, tibialis anterior, extensor hallucis longus, and gastroc/soleus complex Sensation intact to light touch in the L2-S1 dermatomes bilaterally 2+ reflexes at the achilles and patella tendons bilaterally No ankle clonus Principal Diagnosis Same as "Discharge Diagnosis" noted below under Discharge Instructions. Discharge Exam 5/5 strength bilateral L2-S1 myotomes SILT L2-S1 tender to palpation left trochanteric bursa Discharge Data Consultations 10/02/24 14:31 Consult Hospitalist Routine Procedures Performed Operation Date: 10/02/24 07:30 Actual Procedures p L4-L5 Transforaminal Lumbar Interbody Fusion with CT Navigation, Spinal Cord Monitoring(Not Applicable) - Amol Camara MD Ordered Studies 10/02/24 07:30 CT lumbar spine wo con Routine [place] lumbar spine 2-3V Routine Hospital Course (1) Lumbar spondylosis: (2) Lumbar radicular pain: (3) Lumbar stenosis without neurogenic claudication: (4) S/P lumbar fusion: Plan On October 02, Gaby arrived at [facility] operating room and underwent L4-5 TLIF, L4 laminectomy with CT navigation without complications. Patient had general anesthesia for the procedure. Patient was admitted to the general orthopedic floor in stable condition postoperatively for pain control and mobilization with physical therapy; they safely and properly performed the ADL tasks demonstrated by PT/OT and met all goals. Pain was controlled with IV pain medication, with a transition to oral medications. Normal return of bowel and bladder function. They worked with therapy, vital signs were acceptable, no need for transfusion, deemed safe for discharge. She did note some left knee pain during her stay, and x-rays were ordered which showed some mild to moderate medial compartment osteoarthritis. A compressive knee sleeve brace was ordered, which was placed by the wire threader, and the patient noted some improvement in her symptoms. She was instructed to follow-up with an orthopedic provider to address any further knee concerns. Additionally, she noted she was having some left lateral hip pain during her stay, and this was determined to be some bursitis. Since she is unable to take oral NSAIDs secondary to the lumbar fusio n, she was sent a prescription for topical Voltaren gel. [facility], however her insurance denied the authorization, saying that she did not require skilled care. So, a prescription was set up for her to have PT/OT come to her house, and this was received at [place]. Patient will follow-up with Dr. Camara in the orthospine clinic in approximately 1 week, as scheduled, for postoperative care. PG Care Time/CCT Total # of Minutes Spent Total Time Spent with Patient: Total time spent is greater than 50% in coordination of care (as documented) at patient's floor/unit and/or counseling patient: Discharge Plan Discharge Items Patient Disposition: Transfer [facility] Reason For Visit: Lumbar Spondylosis, Lumbar Spondylolisthesis, Lumb Discharge Diagnosis: s/p lumbar spinal fusion Activity: Per Instructions section Lifting: No more than 5 pounds Bathing Comment: See instructions section Weightbearing: Full weightbearing Non-emergency contact: Surgeon Call non-emergency contact if: your pain is not controlled, your pain is worsening, your temperature is above 101, your wound has increased redness and your wound has increased drainage Follow-up/Referrals: Amol Camara MD [Surgeon] - (10/15/24 @ 11:00 am) Humble Rizvi MD [Primary Care Provider] - Diet: Regular and Carb Consistent or DM2 Addtl Attending Provider Instructions: Dr. Amol Camara PH: [phone] Instructions for FUSION Spine Surgery DO NOT TAKE ANY ANTI-INFLAMMATORY MEDICATIONS (MOTRIN, ALEVE, MOBIC, ETC.) IF YOU HAVE UNDERGONE A LUMBAR, THORACIC, OR CERVICAL FUSION DO NOT TAKE ANY HERBAL SUPPLEMENTS MEDICATIONS: You will be given prescriptions for the following: Oxycodone, Percocet or Hydrocodone - For breakthrough pain. Cyclobenzaprine (Flexeril), Valium (Diazepam), or Methocarbamol (Robaxin) For muscle spasms and back pain. Take these medications as needed. They will help the most during your recovery time. Senna-s and Miralax Senna-S twice daily, 17g packet of Miralax with water once daily while taking narcotics. These medications prevent constipation caused by the pain medications. Ondansetron (Zofran) For nausea. Cephalexin (Keflex) or Sulfamethoxazole/trimethoprim (Bactrim). Antibiotic. You are given IV antibiotics while in the hospital; you may or may not be given a prescription for home; this will be decided after surgery. Your pre-surgery prescription medications With the exception of anti-infl ammatory medications, blood thinners (Coumadin, Plavix, Eliquis, Pradaxa, etc.), or narcotic pain medications, you may resume your home medications. For the above medications, you will be given specific instructions; you may resume blood thinners 3-4 days after surgery. ACTIVITIES: Walking Walking is mandatory. You need to walk at least once every hour while awake. Walking will help prevent blood clots in your legs and help prevent spasms in your back. Bending/twisting Limit bending at the waist, limit twisting and turning. You will be taught to "log roll" to get out of bed. Avoid athletic activities until further notice. Lifting Do NOT lift more than 5 lbs until further notice. Driving You may drive when you are no longer taking narcotic pain medications, can safely operate the brake/gas/clutch pedals, and can move your head/neck for visibility. Tobacco All tobacco products are strictly prohibited after surgery. Any use will dramatically increase your risk of complications. This includes vapor cigarettes, marijuana, nicotine patches and gums. Bracing/Cervical Collar There is no brace required for thoracic or lumbar surgery. If you have had a single level cervical fusion, you will be given a soft collar for comfort. Multiple level cervical fusions will receive a hard collar to be worn at all times, except for showering and hygiene, until follow up in clinic. Surgical Dressing Initial operative dressing is to stay on for 2 days; you may change it if it becomes saturated. From then on, change the dressing daily with dry gauze and paper tape. Continue to change dressing until there is no discharge. Once there is no discharge on the dressing, you may leave the incision open to air but make sure to keep it out of the sun. For supplies, stop by any local pharmacy. Any type of gauze dressing is acceptable. Do not put any ointments on the wound. You may shower 48 hours after your surgery. Cover the incision with Saran Wrap and tape the edges to prevent water from contacting the incision. If water contacts the incision, pat dry. No baths or submerging the incision until seen in the clinic at follow up appointment. Next Appointment: You have a post-op appointment scheduled with Dr. Camara on 10/15/24 at 11:00 am. If you have an y questions, please call [phone]. QUESTIONS Please contact the office with questions or concerns: [phone] If outside normal business hours, you will be connected with the on-call physician. Pending Studies at Discharge: No Stand-Alone Forms: My [facility] Skilled Items Patient informed of condition?: Yes DNR: No Discharge Level of Care: Skilled Communicable Disease: No Discharge Prognosis: Improving Lines: None Urinary Catheter: No Medications and DC Order Prescriptions: New oxycodone-acetaminophen [Percocet] 5-325 mg Tablet 1 tab PO Q4H PRN (Reason: pain) Qty: 30 0RF tizanidine 4 mg tablet 4 mg PO Q8H PRN (Reason: muscle spasticity) Qty: 30 1RF diclofenac sodium [Voltaren Arthritis Pain] 1 % gel 4 g topical QID Qty: 100 0RF Rx Instructions: apply to lateral hip/thigh up to 4 times daily as needed Continued folic acid 400 mcg Tablet 0.8 mg PO QAM alprazolam [Xanax] 0.5 mg Tablet 0.25 mg PO HS PRN (Reason: Sleep) ascorbic acid (vitamin C) [Vitamin C] 500 mg Capsule, Extended Release 500 mg PO QAM coenzyme Q10 [CoQ-10] 100 mg Capsule 100 mg PO QAM selenium 200 mcg Tablet 200 mcg PO QAM zinc 50 mg Tablet 50 mg PO QAM vitamin E (dl, acetate) 400 unit Tablet,Chewable 400 unit PO QAM cholecalciferol (vitamin D3) [Vitamin D3] 50 mcg (2,000 unit) Capsule 100 mcg PO QAM magnesium glycinate 118 mg magnesium Capsule 118 mg PO QPM Held cranberry 500 mg Capsule 500 mg PO QAM Hold Instructions: Resume on 12/30/24. alpha lipoic acid 200 mg Capsule 200 mg PO QAM Hold Instructions: Resume on 12/30/24. Echinacea and Goldenseal 450 mg Capsule 900 mg PO QAM Hold Instructions: Resume on 12/30/24. Hair, Skin, Nails with Biotin 7.5-7.5-1,250 mg-unit-mcg Tablet,Chewable 1 tab PO QAM Hold Instructions: Resume on 12/30/24. flaxseed oil 1,000 mg Capsule 1,000 mg PO QAM Hold Instructions: Resume on 12/30/24. Rx Instructions: administer with meals red yeast rice 600 mg Tablet 1,200 mg PO QAM Hold Instructions: Resume on 12/30/24. Rx Instructions: give with meal/snack turmeric 400 mg Capsule 400 mg PO UD Hold Instructions: Resume on 12/30/24. Patient Comments: takes 2 tablet qam Discharge Orders: Discharge Order (Routine); Ordered 10/08/24 Ordered By: Dejuan Hood/Other Patient Handouts: Post-Op Tips: Back Admission Data Admit Date/Time: 10/02/24 11:35 Attending Provider: Amol Camara Admit Provider: Amol Camara Primary Care Provider: Humble Rizvi I. Other Providers: Maria R Reed; Amara Aponte I.; Roland Gregg; Saloni Daniels; Erlinda Jara; Adriana Burrell; Lisseth Reynaga; Ilan Campoverde; Ronak King; Jalen Vicente; Tremayne Sevilla; Mera Cai; Tremaine Tapia; Jairo Colbert; Martha Sparks; Kaye Morales; Estrella Celeste; Stefanie Rizo; Lynette Weaver; Tierra Day I.; Adrien Kaur; Steff Chew; Robbi Rubio; Phoenix Acosta.; Kevin Bhandari; Gigi Hu; Yenifer Sanchze; Gregoria Che; Rory Casper; Karan Moulton; Kalin Mosquera; Adrien Griffiths; Jakob Kyle; Armando Hubbard.; Sascha Levy; [place] nevaeh
--- NOTE | 2024-10-07 11:30 | XRay Report ---
XR knee LT 1 or 2V routine HISTORY: 78 years-old Female L knee pain, clicking w/ WB; for discharge today acute left knee pain w ithout reported trauma COMPARISON: None TECHNIQUE: 2 views of left knee FINDINGS: Mild tricompartmental osteoarthritis. Demineralized appearance of the bones. There is no acute fractu re, dislocation or large joint effusion identified. IMPRESSION: Mild osteoarthritis without acute fracture. ACT 112: Negative or not required by law. The above report was generated using voice recognition software. It may contain grammatical, syntax o r spelling errors. Electronically signed by: Layton Doyle M.D. 10/07/2024 11:29 AM
[2024-10-07 12:59] VITALS: RESP 18
[2024-10-07] MEDS: POLYETHYLENE (MIRALAX) 17 GM PACK PO PRN (20:43)
[2024-10-07 21:11] VITALS: O2SAT 96
[2024-10-08 07:42] VITALS: PULSE 71; TEMP 97.7
--- NOTE | 2024-10-08 08:04 | Orthopedic Progress Note ---
<Statement entered by Amol Camara MD - 10/08/24 09:05> Discussed with Colton Lynch PA-C, peer to peer with patient's insurance company was done this morning, SNF denied as state she may need assistance however does not need skilled staff. Will arrange PT at her assisted living development. Date of Service October 08, 2024 Assessment & Plan (1) S/P lumbar fusion: POD [address] Camara. Pain is controlled. Knee feels better with the brace continue PT/OT d/c planning: awaiting SNF, peer to peer review today. Subjective . 78 year old patient POD [address] Camara. Has some pain but reasonably controlled. Had a sense of knee instability but that is improved with the brace that was ordered. No radicular pain. Review of Systems All systems reviewed & are unremarkable except as noted in HPI & below. Physical Exam . alert and oriented. NAD. VSS Dressing clean, dry, intact. Able to dorsiflex and plantarflex, strength 5/5. Sensation intact to touch. Results & Data Results & Data Laboratory Results . Diagnostic Findings . PG Care Time/CCT Total # of Minutes Spent Total Time Spent with Patient: Total time spent is greater than 50% in coordination of care (as documented) at patient's floor/unit and/or counseling patient: Coding Level of Care Code 02916 Post Operative Follow-Up Diagnoses S/P lumbar fusion Z98.1
[2024-10-08 13:39] VITALS: BP 108/67
== END 2024-10-08 15:06 | disposition home health service (06) | DRG 402 ==
LOC: ASU 05:45 → 3N 11:35